=== PATIENT | male | born 1945 | race Caucasian/White ===

== ENCOUNTER 2017-12-22 13:56 | Inpatient (IN) | payer OTHER ==
[~2017-12-22] VITALS: Ht 170.2 cm; Wt 64.6 kg
[~2017-12-22 13:56] MED LIST: ALPR.5; ALPR.5 PO; ASPI325 PO; AZIT250 PO; CYCL10 PO; DILT180; DILT180 PO; ESCI10; FLUSAL1005; GINKGO BILOBA; GLUC500; GLUCHON PO; GUAI600T33 PO; HYDACE5; HYDACE5 PO; IBUP800 PO; IPRAOI; LISI5 PO; META400 PO; META800 PO; MOTRIN; MULVITA; NAPR375 PO; NAPR500; OXYB5; OXYB5 PO; PAIN PILL; PENVK500; RXHYDACE PO; RXMETA400 PO; TOCO1000; TOCO400 PO; TYLENOL; VITA25000 PO; Vitamin C100 MG PO
[2017-12-22] MEDS ORDERED: Vesicare10 MG PO (14:12)
[2017-12-22 15:12] LABS: Alanine Aminotransfer (ALT/SGP 24 U/L (12-78); Albumin, Blood 3.8 g/dL (3.4-5.0); Alk Phos 71 U/L (50-136); Anion Gap 7 mmol/L (6-16); Aspartate Aminotrans (AST/SGOT 25 U/L (12-37); Bilirubin, Total 0.5 mg/dL (0.1-1.0); Blood Urea Nitrogen 15 mg/dL (8-24); Bun/Creatinine Ratio 23.1 (12.0-20.0); CO2, Blood 27 mmol/L (21-32); Calcium, Blood 8.9 mg/dL (8.5-10.1); Chloride, Blood 108 mmol/L (98-108); Creatinine, Blood 0.65 mg/dL (0.60-1.20); Glomerular Filtration Rate >60 (60-); Glucose, Blood 115 mg/dL (70-99); Potassium, Blood 4.6 mmol/L (3.5-5.5); Sodium, Blood 142 mmol/L (136-145); Total Protein, Blood 7.8 g/dL (6.4-8.2)
[2017-12-22 15:30] LABS: BASOPHILS ABSOLUTE AUTO 0.03 K/mm3 (0.00-0.23); BASOPHILS PERCENT AUTO 0 % (0-2); EOSINOPHILS ABSOLUTE AUTO 0.17 K/mm3 (0.00-0.68); EOSINOPHILS PERCENT AUTO 2 % (0-6); IMMATURE GRAN ABSOLUTE AUTO 0.01 K/mm3 (0.00-0.10); IMMATURE GRAN PERCENT AUTO 0 % (0-1); LYMPHOCYTES ABSOLUTE AUTO 1.62 K/mm3 (0.84-5.20); LYMPHOCYTES PERCENT AUTO 23 % (21-46); MONOCYTES ABSOLUTE AUTO 0.54 K/mm3 (0.16-1.47); MONOCYTES PERCENT AUTO 8 % (4-13); Mean Corpuscular HGB 32.8 pg (26.0-34.0); Mean Corpuscular Volume 96 fL (80-100); Mean Platelet Volume 10.2 fL (9.1-12.4); NEUTROPHILS ABSOLUTE AUTO 4.61 K/mm3 (1.96-9.15); NEUTROPHILS PERCENT AUTO 66 % (41-73); Platelet Count 202 K/mm3 (150-400); RDW Coefficient Variation 13.1 % (11.7-14.2); RDW Standard Deviation 46.9 fL (35.1-46.3); Red Blood Cell Count 4.88 M/mm3 (4.30-5.90); White Blood Cell Count 6.98 K/mm3 (4.00-11.30)
[2017-12-22 15:50] LABS: Test Name PT
[2017-12-22 16:57] LABS: C-REACTIVE PROTEIN, EXT RANGE <0.290 mg/dL (0.000-0.300)
[2017-12-23 05:01] LABS: Hematocrit 40.1 % (37.0-53.0); Hemoglobin 13.4 g/dL (13.5-17.5); Mean Corpuscular HGB 32.1 pg (26.0-34.0); Mean Corpuscular HGB Conc 33.4 g/dL (31.5-36.5); Mean Corpuscular Volume 96 fL (80-100); Mean Platelet Volume 10.1 fL (9.1-12.4); Platelet Count 184 K/mm3 (150-400); RDW Coefficient Variation 13.2 % (11.7-14.2); RDW Standard Deviation 46.9 fL (35.1-46.3); Red Blood Cell Count 4.17 M/mm3 (4.30-5.90); White Blood Cell Count 7.33 K/mm3 (4.00-11.30)
[2017-12-23 05:22] LABS: Alanine Aminotransfer (ALT/SGP 18 U/L (12-78); Albumin/Globulin Ratio 0.9 (0.8-1.8); Alk Phos 52 U/L (50-136); Anion Gap 4 mmol/L (6-16); Aspartate Aminotrans (AST/SGOT 8 U/L (12-37); Bilirubin, Total 0.5 mg/dL (0.1-1.0); Blood Urea Nitrogen 17 mg/dL (8-24); Bun/Creatinine Ratio 22.4 (12.0-20.0); CO2, Blood 28 mmol/L (21-32); Calcium, Blood 8.2 mg/dL (8.5-10.1); Chloride, Blood 113 mmol/L (98-108); Creatinine, Blood 0.76 mg/dL (0.60-1.20); Globulin, Blood 3.2 g/dL (2.2-4.0); Glomerular Filtration Rate >60 (60-); Glucose, Blood 127 mg/dL (70-99); Potassium, Blood 3.9 mmol/L (3.5-5.5); Sodium, Blood 145 mmol/L (136-145); Total Protein, Blood 6.2 g/dL (6.4-8.2)
[2017-12-24 04:58] LABS: BASOPHILS ABSOLUTE AUTO 0.03 K/mm3 (0.00-0.23); BASOPHILS PERCENT AUTO 0 % (0-2); EOSINOPHILS ABSOLUTE AUTO 0.17 K/mm3 (0.00-0.68); EOSINOPHILS PERCENT AUTO 2 % (0-6); Hematocrit 40.3 % (37.0-53.0); Hemoglobin 13.5 g/dL (13.5-17.5); IMMATURE GRAN ABSOLUTE AUTO 0.01 K/mm3 (0.00-0.10); IMMATURE GRAN PERCENT AUTO 0 % (0-1); LYMPHOCYTES ABSOLUTE AUTO 1.79 K/mm3 (0.84-5.20); LYMPHOCYTES PERCENT AUTO 24 % (21-46); MONOCYTES ABSOLUTE AUTO 0.61 K/mm3 (0.16-1.47); MONOCYTES PERCENT AUTO 8 % (4-13); Mean Corpuscular HGB 32.5 pg (26.0-34.0); Mean Corpuscular HGB Conc 33.5 g/dL (31.5-36.5); Mean Corpuscular Volume 97 fL (80-100); Mean Platelet Volume 10.8 fL (9.1-12.4); NEUTROPHILS ABSOLUTE AUTO 4.91 K/mm3 (1.96-9.15); NEUTROPHILS PERCENT AUTO 65 % (41-73); Platelet Count 169 K/mm3 (150-400); RDW Standard Deviation 46.7 fL (35.1-46.3); Red Blood Cell Count 4.16 M/mm3 (4.30-5.90); White Blood Cell Count 7.52 K/mm3 (4.00-11.30)
[2017-12-24 05:21] LABS: Anion Gap 6 mmol/L (6-16); Blood Urea Nitrogen 16 mg/dL (8-24); Bun/Creatinine Ratio 20.7 (12.0-20.0); CO2, Blood 27 mmol/L (21-32); Calcium, Blood 8.5 mg/dL (8.5-10.1); Chloride, Blood 110 mmol/L (98-108); Creatinine, Blood 0.77 mg/dL (0.60-1.20); Glomerular Filtration Rate >60 (60-); Glucose, Blood 143 mg/dL (70-99); Potassium, Blood 4.1 mmol/L (3.5-5.5); Sodium, Blood 143 mmol/L (136-145)
== END 2017-12-26 18:35 | disposition home or self-care (01) | DRG 603 ==
LOC: ER 13:56 → MEDS 16:34 → ER 17:43 → MEDS 12-26 18:35
PROVIDERS: Family Medicine; Internal Medicine; Physician Assistant
DX: L03.116 Cellulitis of left lower limb (principal); I10 Essential (primary) hypertension; F17.210 Nicotine dependence, cigarettes, uncomplicated; J30.2 Other seasonal allergic rhinitis; R32 Unspecified urinary incontinence; F41.9 Anxiety disorder, unspecified; R45.1 Restlessness and agitation; I16.0 Hypertensive urgency; R26.9 Unspecified abnormalities of gait and mobility; J44.9 Chronic obstructive pulmonary disease, unspecified; Z79.82 Long term (current) use of aspirin
CPT/HCPCS: 36415; 80048; 80053; 83605; 83880; 85025; 85027; 85610; 86140; 87040; 87077; 93971; 96365; 97161; 97530; 99285; G8978; G8979; G8980; J0360; J0696; J0713; J7030

== ENCOUNTER → 2019-03-19 | Outpatient (CLI) | payer OTHER ==
[~2019-03-19] MED LIST changes: +Vesicare10 MG PO
[2019-03-24 13:07] LABS: M-SPIKE, % Not Observed % (Not Observed); PROTEIN,TOTAL,URINE 11.2 mg/dL (Not Estab.)
== END ==
LOC: LAB 10:00 → LAB SHORT 10:00 → LAB FUT 02-24 10:05
PROVIDERS: Internal Medicine
DX: Z00.01 Encounter for general adult medical examination with abnormal findings (principal)
CPT/HCPCS: 81050; 84166; 86335

== ENCOUNTER 2019-06-21 17:17 | Emergency (ER) | payer OTHER ==
[~2019-06-21] VITALS: Ht 154.9 cm; Wt 57.6 kg
[2019-06-21] MEDS ORDERED: LIDO700A20 TOP (18:45)
[2019-06-21] MEDS ORDERED: IBUP400 PO (18:45)
== END 2019-06-21 19:02 | disposition home or self-care (01) ==
LOC: ER 17:17
DX: S39.012A Strain of muscle, fascia and tendon of lower back, initial encounter (principal); I10 Essential (primary) hypertension; F17.210 Nicotine dependence, cigarettes, uncomplicated; Z88.8 Allergy status to other drugs, medicaments and biological substances; Z79.82 Long term (current) use of aspirin; Z79.899 Other long term (current) drug therapy; V02.90XA Pedestrian on foot injured in collision with two- or three-wheeled motor vehicle, unspecified whether traffic or nontraffic accident, initial encounter
CPT/HCPCS: 72100; 99283

== ENCOUNTER 2019-08-12 19:06 | Emergency (ER) | payer OTHER ==
[~2019-08-12] VITALS: Ht 154.9 cm; Wt 58.1 kg
[~2019-08-12 19:06] MED LIST changes: +IBUP400 PO; +LIDO700A20 TOP
[2019-08-12] MEDS ORDERED: METFORMIN HCL500 M2 PO (19:26)
[2019-08-12] MEDS ORDERED: FUROSEMIDE40 MG PO (19:26)
[2019-08-12] MEDS ORDERED: Toviaz4 MG PO (19:27)
[2019-08-12] MEDS ORDERED: Klor-Con 1010 MEQ PO (19:27)
[2019-08-12 20:37] LABS: Source, Urine Clean Catch
[2019-08-12 20:48] LABS: Bilirubin, Urine Neg (Neg); Blood, Urine Neg (Neg); Glucose Qualitative, Urine Neg (Neg); Ketones, Urine Neg (Neg); Leukocyte Esterase, Urine Neg (Neg); Nitrite, Urine Neg (Neg); Protein, Urine Neg (Neg); Specific Gravity, Urine 1.015 (1.003-1.022); Urobilinogen, Urine 1+ (Normal); pH, Urine 6.5 (5.0-8.0)
[2019-08-12 20:52] LABS: Appearance, Urine Clear (Clear); Color, Urine Yellow (P-Yellow)
[2019-08-12 21:12] LABS: BASOPHILS ABSOLUTE AUTO 0.05 K/mm3 (0.00-0.23); BASOPHILS PERCENT AUTO 1 % (0-2); EOSINOPHILS ABSOLUTE AUTO 0.28 K/mm3 (0.00-0.68); EOSINOPHILS PERCENT AUTO 3 % (0-6); Hematocrit 42.2 % (37.0-53.0); Hemoglobin 13.6 g/dL (13.5-17.5); IMMATURE GRAN ABSOLUTE AUTO 0.02 K/mm3 (0.00-0.10); IMMATURE GRAN PERCENT AUTO 0 % (0-1); LYMPHOCYTES ABSOLUTE AUTO 2.09 K/mm3 (0.84-5.20); LYMPHOCYTES PERCENT AUTO 23 % (21-46); MONOCYTES ABSOLUTE AUTO 0.73 K/mm3 (0.16-1.47); MONOCYTES PERCENT AUTO 8 % (4-13); Mean Corpuscular HGB 31.9 pg (26.0-34.0); Mean Corpuscular HGB Conc 32.2 g/dL (31.5-36.5); Mean Corpuscular Volume 99 fL (80-100); Mean Platelet Volume 10.7 fL (9.1-12.4); NEUTROPHILS ABSOLUTE AUTO 6.02 K/mm3 (1.96-9.15); NEUTROPHILS PERCENT AUTO 66 % (41-73); Platelet Count 266 K/mm3 (150-400); RDW Coefficient Variation 13.2 % (11.7-14.2); RDW Standard Deviation 47.9 fL (35.1-46.3); Red Blood Cell Count 4.27 M/mm3 (4.30-5.90); White Blood Cell Count 9.19 K/mm3 (4.00-11.30)
[2019-08-12 21:32] LABS: Alanine Aminotransfer (ALT/SGP 24 U/L (12-78); Albumin, Blood 3.6 g/dL (3.4-5.0); Albumin/Globulin Ratio 0.9 (0.8-1.8); Alk Phos 74 U/L (50-136); Anion Gap 4 mmol/L (6-16); Aspartate Aminotrans (AST/SGOT 18 U/L (12-37); Bilirubin, Total 0.2 mg/dL (0.1-1.0); Blood Urea Nitrogen 22 mg/dL (8-24); Bun/Creatinine Ratio 25.6 (12.0-20.0); CO2, Blood 30 mmol/L (21-32); Calcium, Blood 8.9 mg/dL (8.5-10.1); Chloride, Blood 109 mmol/L (98-108); Creatinine, Blood 0.86 mg/dL (0.60-1.20); Globulin, Blood 3.9 g/dL (2.2-4.0); Glomerular Filtration Rate >60 (60-); Glucose, Blood 111 mg/dL (70-99); Potassium, Blood 4.5 mmol/L (3.5-5.5); Sodium, Blood 143 mmol/L (136-145); Total Protein, Blood 7.5 g/dL (6.4-8.2)
== END 2019-08-13 00:09 | disposition home or self-care (01) ==
LOC: ER 19:06
PROVIDERS: Emergency Medicine
DX: R42 Dizziness and giddiness (principal); J44.1 Chronic obstructive pulmonary disease with (acute) exacerbation; I10 Essential (primary) hypertension; E11.9 Type 2 diabetes mellitus without complications; F17.210 Nicotine dependence, cigarettes, uncomplicated; Z88.8 Allergy status to other drugs, medicaments and biological substances; Z79.899 Other long term (current) drug therapy; Z79.84 Long term (current) use of oral hypoglycemic drugs; Z79.82 Long term (current) use of aspirin
CPT/HCPCS: 71046; 80053; 81003; 84484; 85025; 93005; 93010; 94640; 99284-25

== ENCOUNTER 2019-10-11 12:48 | Emergency (ER) | payer OTHER ==
[~2019-10-11] VITALS: Ht 154.9 cm; Wt 59.0 kg
[~2019-10-11 12:48] MED LIST changes: -FLUSAL1005; +FLUT1DIS5 INH; +FUROSEMIDE40 MG PO; +Klor-Con 1010 MEQ PO; +METFORMIN HCL500 M2 PO; +Miralax17 GM PO; +Toviaz4 MG PO
[2019-10-11] MEDS ORDERED: ALBU2.5V5 INH (13:27)
== END 2019-10-11 15:25 | disposition home or self-care (01) ==
LOC: ER 12:48
DX: R07.89 Other chest pain (principal); Z65.8 Other specified problems related to psychosocial circumstances; I10 Essential (primary) hypertension; J44.9 Chronic obstructive pulmonary disease, unspecified; E11.9 Type 2 diabetes mellitus without complications; F17.210 Nicotine dependence, cigarettes, uncomplicated; Z88.8 Allergy status to other drugs, medicaments and biological substances; Z79.82 Long term (current) use of aspirin; Z79.899 Other long term (current) drug therapy
CPT/HCPCS: 71045; 84484; 93005; 93010; 99285-25

== ENCOUNTER 2020-04-08 12:03 | Emergency (ER) | payer OTHER ==
[~2020-04-08] VITALS: Ht 162.6 cm; Wt 59.0 kg
[~2020-04-08 12:03] MED LIST changes: +ALBU2.5V5 INH; -ASPI325 PO; +Aspirin EC81 MG PO; +DIPH25 PO; +FLUT1DIS2 INH; -FLUT1DIS5 INH; +IPRAT-ALBUT 0.5-3 ML INH; +MIRALAX17 GM PO
[2020-04-08 12:45] LABS: BASOPHILS ABSOLUTE AUTO 0.05 K/mm3 (0.00-0.23); BASOPHILS PERCENT AUTO 1 % (0-2); EOSINOPHILS ABSOLUTE AUTO 0.23 K/mm3 (0.00-0.68); EOSINOPHILS PERCENT AUTO 3 % (0-6); Hematocrit 42.5 % (37.0-53.0); IMMATURE GRAN ABSOLUTE AUTO 0.02 K/mm3 (0.00-0.10); IMMATURE GRAN PERCENT AUTO 0 % (0-1); LYMPHOCYTES ABSOLUTE AUTO 1.85 K/mm3 (0.84-5.20); LYMPHOCYTES PERCENT AUTO 21 % (21-46); MONOCYTES ABSOLUTE AUTO 0.59 K/mm3 (0.16-1.47); MONOCYTES PERCENT AUTO 7 % (4-13); Mean Corpuscular HGB 31.5 pg (26.0-34.0); Mean Corpuscular HGB Conc 32.9 g/dL (31.5-36.5); Mean Corpuscular Volume 96 fL (80-100); Mean Platelet Volume 9.9 fL (9.1-12.4); NEUTROPHILS ABSOLUTE AUTO 5.98 K/mm3 (1.96-9.15); NEUTROPHILS PERCENT AUTO 69 % (41-73); Platelet Count 282 K/mm3 (150-400); RDW Coefficient Variation 13.1 % (11.7-14.2); RDW Standard Deviation 46.4 fL (35.1-46.3); Red Blood Cell Count 4.45 M/mm3 (4.30-5.90); White Blood Cell Count 8.72 K/mm3 (4.00-11.30)
[2020-04-08 12:57] LABS: Source, Urine Clean Catch
[2020-04-08 12:59] LABS: Alanine Aminotransfer (ALT/SGP 26 U/L (12-78); Albumin, Blood 3.7 g/dL (3.4-5.0); Albumin/Globulin Ratio 0.9 (0.8-1.8); Alk Phos 72 U/L (50-136); Anion Gap 6 mmol/L (6-16); Aspartate Aminotrans (AST/SGOT 19 U/L (12-37); Bilirubin, Total 0.3 mg/dL (0.1-1.0); Blood Urea Nitrogen 22 mg/dL (8-24); Bun/Creatinine Ratio 28.3 (12.0-20.0); CO2, Blood 28 mmol/L (21-32); Calcium, Blood 9.3 mg/dL (8.5-10.1); Chloride, Blood 105 mmol/L (98-108); Creatinine, Blood 0.78 mg/dL (0.60-1.20); Glomerular Filtration Rate >60 (60-); Glucose, Blood 205 mg/dL (70-99); Potassium, Blood 4.4 mmol/L (3.5-5.5); Sodium, Blood 139 mmol/L (136-145); Total Protein, Blood 7.7 g/dL (6.4-8.2); Troponin I <0.015 ng/mL (0.000-0.040)
[2020-04-08 13:01] LABS: Appearance, Urine Clear (Clear); Bilirubin, Urine Neg (Neg); Blood, Urine Neg (Neg); Color, Urine Yellow (P-Yellow); Glucose Qualitative, Urine 1+ (Neg); Ketones, Urine Neg (Neg); Leukocyte Esterase, Urine Neg (Neg); Nitrite, Urine Neg (Neg); Protein, Urine Neg (Neg); Urobilinogen, Urine NORM (Normal)
== END 2020-04-08 14:50 | disposition home or self-care (01) ==
LOC: ER 12:03
PROVIDERS: Physician Assistant
DX: R55 Syncope and collapse (principal); R00.0 Tachycardia, unspecified; I10 Essential (primary) hypertension; F17.210 Nicotine dependence, cigarettes, uncomplicated
CPT/HCPCS: 36415; 71046; 80053; 81003; 84484; 85025; 93005; 93010; 99284-25

== ENCOUNTER 2020-09-10 17:15 | Emergency (ER) | payer OTHER ==
[~2020-09-10] VITALS: Ht 167.6 cm; Wt 70.3 kg
[2020-09-10 18:48] LABS: BASOPHILS ABSOLUTE AUTO 0.05 K/mm3 (0.00-0.23); BASOPHILS PERCENT AUTO 1 % (0-2); EOSINOPHILS ABSOLUTE AUTO 0.47 K/mm3 (0.00-0.68); EOSINOPHILS PERCENT AUTO 5 % (0-6); Hematocrit 45.8 % (37.0-53.0); Hemoglobin 15.1 g/dL (13.5-17.5); IMMATURE GRAN ABSOLUTE AUTO 0.01 K/mm3 (0.00-0.10); IMMATURE GRAN PERCENT AUTO 0 % (0-1); LYMPHOCYTES ABSOLUTE AUTO 2.05 K/mm3 (0.84-5.20); LYMPHOCYTES PERCENT AUTO 21 % (21-46); MONOCYTES ABSOLUTE AUTO 0.56 K/mm3 (0.16-1.47); MONOCYTES PERCENT AUTO 6 % (4-13); Mean Corpuscular HGB 31.1 pg (26.0-34.0); Mean Corpuscular Volume 94 fL (80-100); Mean Platelet Volume 9.3 fL (9.1-12.4); NEUTROPHILS ABSOLUTE AUTO 6.44 K/mm3 (1.96-9.15); NEUTROPHILS PERCENT AUTO 67 % (41-73); Platelet Count 282 K/mm3 (150-400); RDW Coefficient Variation 13.8 % (11.7-14.2); RDW Standard Deviation 48.1 fL (35.1-46.3); Red Blood Cell Count 4.85 M/mm3 (4.30-5.90); White Blood Cell Count 9.58 K/mm3 (4.00-11.30)
[2020-09-10 19:12] LABS: Alanine Aminotransfer (ALT/SGP 30 U/L (12-78); Albumin, Blood 3.9 g/dL (3.4-5.0); Alk Phos 72 U/L (50-136); Anion Gap 4 mmol/L (6-16); Aspartate Aminotrans (AST/SGOT 16 U/L (12-37); Bilirubin, Total 0.2 mg/dL (0.1-1.0); Blood Urea Nitrogen 25 mg/dL (8-24); Bun/Creatinine Ratio 34.9 (12.0-20.0); CO2, Blood 29 mmol/L (21-32); Calcium, Blood 9.6 mg/dL (8.5-10.1); Chloride, Blood 106 mmol/L (98-108); Creatinine, Blood 0.72 mg/dL (0.60-1.20); Globulin, Blood 4.1 g/dL (2.2-4.0); Glomerular Filtration Rate >60 (60-); Glucose, Blood 142 mg/dL (70-99); Potassium, Blood 4.3 mmol/L (3.5-5.5); Sodium, Blood 139 mmol/L (136-145); Troponin I <0.015 ng/mL (0.000-0.040)
== END 2020-09-10 20:06 | disposition home or self-care (01) ==
LOC: ER 17:15
PROVIDERS: Emergency Medicine
DX: R07.89 Other chest pain (principal)
CPT/HCPCS: 36415; 71046; 80053; 83880; 84484; 85025; 93005; 93010; 99284-25

== ENCOUNTER 2020-12-27 10:13 | Emergency (ER) | payer OTHER ==
[~2020-12-27] VITALS: Ht 154.9 cm; Wt 57.6 kg
[2020-12-27 11:07] LABS: Alanine Aminotransfer (ALT/SGP 19 U/L (12-78); Albumin, Blood 3.8 g/dL (3.4-5.0); Albumin/Globulin Ratio 0.9 (0.8-1.8); Alk Phos 68 U/L (50-136); Anion Gap 4 mmol/L (6-16); Aspartate Aminotrans (AST/SGOT 12 U/L (12-37); Bilirubin, Total 0.3 mg/dL (0.1-1.0); Blood Urea Nitrogen 11 mg/dL (8-24); Bun/Creatinine Ratio 16.1 (12.0-20.0); CO2, Blood 30 mmol/L (21-32); Calcium, Blood 9.5 mg/dL (8.5-10.1); Chloride, Blood 104 mmol/L (98-108); Creatinine, Blood 0.69 mg/dL (0.60-1.20); Globulin, Blood 4.1 g/dL (2.2-4.0); Glomerular Filtration Rate >60 (60-); Glucose, Blood 191 mg/dL (70-99); Potassium, Blood 4.3 mmol/L (3.5-5.5); Sodium, Blood 138 mmol/L (136-145); Total Protein, Blood 7.9 g/dL (6.4-8.2); Troponin I <0.015 ng/mL (0.000-0.040)
[2020-12-27 11:38] LABS: BASOPHILS ABSOLUTE AUTO 0.02 K/mm3 (0.00-0.23); BASOPHILS PERCENT AUTO 0 % (0-2); EOSINOPHILS ABSOLUTE AUTO 0.16 K/mm3 (0.00-0.68); EOSINOPHILS PERCENT AUTO 2 % (0-6); Hematocrit 43.2 % (37.0-53.0); Hemoglobin 14.1 g/dL (13.5-17.5); IMMATURE GRAN ABSOLUTE AUTO 0.02 K/mm3 (0.00-0.10); IMMATURE GRAN PERCENT AUTO 0 % (0-1); LYMPHOCYTES ABSOLUTE AUTO 1.37 K/mm3 (0.84-5.20); LYMPHOCYTES PERCENT AUTO 19 % (21-46); MONOCYTES PERCENT AUTO 7 % (4-13); Mean Corpuscular HGB 30.9 pg (26.0-34.0); Mean Corpuscular HGB Conc 32.6 g/dL (31.5-36.5); Mean Corpuscular Volume 95 fL (80-100); Mean Platelet Volume 9.9 fL (9.1-12.4); NEUTROPHILS ABSOLUTE AUTO 5.13 K/mm3 (1.96-9.15); NEUTROPHILS PERCENT AUTO 71 % (41-73); Platelet Count 230 K/mm3 (150-400); RDW Coefficient Variation 14.1 % (11.7-14.2); RDW Standard Deviation 49.2 fL (35.1-46.3); Red Blood Cell Count 4.57 M/mm3 (4.30-5.90)
[2020-12-27 12:35] LABS: Source, Urine Voided
[2020-12-27 12:58] LABS: Bilirubin, Urine Neg (Neg); Blood, Urine Neg (Neg); Glucose Qualitative, Urine Neg (Neg); Ketones, Urine Neg (Neg); Leukocyte Esterase, Urine Neg (Neg); Nitrite, Urine Neg (Neg); Protein, Urine Neg (Neg); Urobilinogen, Urine NORM (Normal)
[2020-12-27 13:02] LABS: Appearance, Urine Clear (Clear); Color, Urine Yellow (P-Yellow)
== END 2020-12-27 15:45 | disposition home or self-care (01) ==
LOC: ER 10:13
PROVIDERS: Emergency Medicine
DX: R55 Syncope and collapse (principal); Z79.82 Long term (current) use of aspirin; Z79.899 Other long term (current) drug therapy
CPT/HCPCS: 36415; 71045; 80053; 81003; 84484; 85025; 93005; 93010; 99284-25; J7030

== ENCOUNTER → 2021-03-19 | Outpatient (CLI) | payer OTHER | END | disposition home or self-care (01) | LOC: LAB SHORT 16:00 | DX: E11.9 Type 2 diabetes mellitus without complications (principal) | CPT/HCPCS: 83036 ==

== ENCOUNTER 2021-04-10 02:36 | Day surgery (SDC) | payer OTHER | END 2021-04-10 22:46 | disposition home or self-care (01) | LOC: WOUND 02:36 | DX: E11.622 Type 2 diabetes mellitus with other skin ulcer (principal); L97.812 Non-pressure chronic ulcer of other part of right lower leg with fat layer exposed; E11.59 Type 2 diabetes mellitus with other circulatory complications; E11.51 Type 2 diabetes mellitus with diabetic peripheral angiopathy without gangrene; I87.2 Venous insufficiency (chronic) (peripheral); F17.210 Nicotine dependence, cigarettes, uncomplicated; J44.9 Chronic obstructive pulmonary disease, unspecified | CPT/HCPCS: A9270; G0463 ==

== ENCOUNTER 2021-04-15 05:53 | Day surgery (SDC) | payer OTHER | END 2021-04-15 23:00 | disposition home or self-care (01) | LOC: WOUND 05:53 | DX: E11.622 Type 2 diabetes mellitus with other skin ulcer (principal); L97.812 Non-pressure chronic ulcer of other part of right lower leg with fat layer exposed; E11.59 Type 2 diabetes mellitus with other circulatory complications; E11.51 Type 2 diabetes mellitus with diabetic peripheral angiopathy without gangrene; I87.2 Venous insufficiency (chronic) (peripheral); F17.210 Nicotine dependence, cigarettes, uncomplicated; J44.9 Chronic obstructive pulmonary disease, unspecified | CPT/HCPCS: G0463 ==

== ENCOUNTER 2021-04-29 18:05 | Inpatient (IN) | payer OTHER ==
[~2021-04-29] VITALS: Ht 154.9 cm; Wt 54.4 kg
[2021-04-29 19:39] LABS: BASOPHILS ABSOLUTE AUTO 0.06 K/mm3 (0.00-0.23); BASOPHILS PERCENT AUTO 0 % (0-2); EOSINOPHILS ABSOLUTE AUTO 0.03 K/mm3 (0.00-0.68); EOSINOPHILS PERCENT AUTO 0 % (0-6); Hematocrit 39.7 % (37.0-53.0); Hemoglobin 13.6 g/dL (13.5-17.5); IMMATURE GRAN ABSOLUTE AUTO 0.09 K/mm3 (0.00-0.10); IMMATURE GRAN PERCENT AUTO 1 % (0-1); LYMPHOCYTES ABSOLUTE AUTO 0.98 K/mm3 (0.84-5.20); LYMPHOCYTES PERCENT AUTO 6 % (21-46); MONOCYTES PERCENT AUTO 4 % (4-13); Mean Corpuscular HGB 31.4 pg (26.0-34.0); Mean Corpuscular HGB Conc 34.3 g/dL (31.5-36.5); Mean Corpuscular Volume 92 fL (80-100); Mean Platelet Volume 11.2 fL (9.1-12.4); NEUTROPHILS PERCENT AUTO 89 % (41-73); Platelet Count 223 K/mm3 (150-400); RDW Coefficient Variation 13.2 % (11.7-14.2); RDW Standard Deviation 45.1 fL (35.1-46.3); Red Blood Cell Count 4.33 M/mm3 (4.30-5.90); White Blood Cell Count 16.76 K/mm3 (4.00-11.30)
[2021-04-29 19:55] LABS: Alanine Aminotransfer (ALT/SGP 15 U/L (12-78); Albumin, Blood 2.7 g/dL (3.4-5.0); Albumin/Globulin Ratio 0.6 (0.8-1.8); Alk Phos 84 U/L (50-136); Anion Gap 5 mmol/L (6-16); Aspartate Aminotrans (AST/SGOT 23 U/L (12-37); Bilirubin, Total 0.5 mg/dL (0.1-1.0); Blood Urea Nitrogen 16 mg/dL (8-24); Bun/Creatinine Ratio 21.2 (12.0-20.0); CO2, Blood 30 mmol/L (21-32); Calcium, Blood 9.1 mg/dL (8.5-10.1); Chloride, Blood 101 mmol/L (98-108); Creatinine, Blood 0.75 mg/dL (0.60-1.20); Globulin, Blood 4.9 g/dL (2.2-4.0); Glomerular Filtration Rate >60 (60-); Glucose, Blood 328 mg/dL (70-99); Potassium, Blood 4.4 mmol/L (3.5-5.5); Sodium, Blood 136 mmol/L (136-145); Total Protein, Blood 7.6 g/dL (6.4-8.2)
[2021-04-29 19:59] LABS: Source, Urine Catheter
[2021-04-29 20:01] LABS: Appearance, Urine Clear (Clear); Bilirubin, Urine Neg (Neg); Blood, Urine 1+ (Neg); Color, Urine Yellow (P-Yellow); Glucose Qualitative, Urine 4+ (Neg); Ketones, Urine 1+ (Neg); Leukocyte Esterase, Urine Neg (Neg); Nitrite, Urine Neg (Neg); Protein, Urine 2+ (Neg); Specific Gravity, Urine 1.015 (1.003-1.022); Urobilinogen, Urine 2+ (Normal); pH, Urine 6.5 (5.0-8.0)
[2021-04-29 20:18] LABS: Bacteria Few /hpf; Red Blood Cells, Urine 0-2 /hpf (0-2); Squamous Epithelial Cells Few /hpf (Few)
[2021-04-29 20:19] LABS: Hyaline Casts 0-2 /lpf (0-2)
[2021-04-29] MEDS ORDERED: ZOLOFT50 MG PO (21:11)
--- NOTE | 2021-04-30 00:53 | NUR ---
PT ARRIVED TO UNIT FROM ER, REPORT PER AFSHIN MATHIS RN.
[2021-04-30 04:44] LABS: BASOPHILS ABSOLUTE AUTO 0.05 K/mm3 (0.00-0.23); BASOPHILS PERCENT AUTO 0 % (0-2); EOSINOPHILS ABSOLUTE AUTO 0.11 K/mm3 (0.00-0.68); EOSINOPHILS PERCENT AUTO 1 % (0-6); IMMATURE GRAN ABSOLUTE AUTO 0.08 K/mm3 (0.00-0.10); IMMATURE GRAN PERCENT AUTO 1 % (0-1); LYMPHOCYTES ABSOLUTE AUTO 1.47 K/mm3 (0.84-5.20); LYMPHOCYTES PERCENT AUTO 10 % (21-46); MONOCYTES ABSOLUTE AUTO 0.85 K/mm3 (0.16-1.47); MONOCYTES PERCENT AUTO 6 % (4-13); Mean Corpuscular HGB 30.8 pg (26.0-34.0); Mean Corpuscular HGB Conc 33.3 g/dL (31.5-36.5); Mean Corpuscular Volume 92 fL (80-100); Mean Platelet Volume 10.8 fL (9.1-12.4); NEUTROPHILS ABSOLUTE AUTO 11.74 K/mm3 (1.96-9.15); NEUTROPHILS PERCENT AUTO 82 % (41-73); Platelet Count 199 K/mm3 (150-400); RDW Coefficient Variation 13.4 % (11.7-14.2); RDW Standard Deviation 45.5 fL (35.1-46.3)
--- NOTE | 2021-04-30 04:54 | NUR ---
SHIFT SUMMARY PT A&O X4 AND IN PLEASENT MOOD T/O SHIFT. PT [place] & HARD TO UNDERSTAND AT TIMES. CALL LIGHT W/IN REACH. BANDAGES ON BILATERAL LE WERE CHANGED DURING THIS SHIFT, CDI @ THIS TIME. PT WAS APPEARED VERY PAINFUL DURING DRESSING CHANGE, BUT DENIES PAIN @ THIS TIME.
[2021-04-30 05:23] LABS: Alanine Aminotransfer (ALT/SGP 12 U/L (12-78); Albumin, Blood 2.2 g/dL (3.4-5.0); Albumin/Globulin Ratio 0.5 (0.8-1.8); Alk Phos 69 U/L (50-136); Anion Gap 6 mmol/L (6-16); Aspartate Aminotrans (AST/SGOT 11 U/L (12-37); Bilirubin, Total 0.5 mg/dL (0.1-1.0); Blood Urea Nitrogen 12 mg/dL (8-24); Bun/Creatinine Ratio 18.6 (12.0-20.0); CO2, Blood 26 mmol/L (21-32); Calcium, Blood 8.6 mg/dL (8.5-10.1); Chloride, Blood 107 mmol/L (98-108); Creatinine, Blood 0.65 mg/dL (0.60-1.20); Globulin, Blood 4.3 g/dL (2.2-4.0); Glomerular Filtration Rate >60 (60-); Glucose, Blood 217 mg/dL (70-99); Potassium, Blood 3.9 mmol/L (3.5-5.5); Sodium, Blood 139 mmol/L (136-145); Total Protein, Blood 6.5 g/dL (6.4-8.2)
--- NOTE | 2021-04-30 15:14 | NUR ---
SHIFT SUMMARY: CELLULITIS BILATERAL FEET PATIENT IS ALERT AND ORIENTED X3 THOUGH HAS A HARD TIME COMING UP WITH WORDS/SPEAKING. PATIENT IS OSAGE AT TIMES. BOTH THE BOTTOMS OF HIS FEET HAVE SCABS/OPEN WOUNDS. SILVERDENE WAS APPLIED TO BOTH FEET AND ARE OPEN TO AIR. PATIENT DENIES PAIN UNTIL TOUCHING THE BOTTOMS OF HIS FEET. PATIENT IS TOLERATING PO INTAKE AND IS VOIDING. HE HAS HAD TWO BMS THIS SHIFT. CALLS APPROPRIATELY. CALL LIGHT WITHIN REACH. THE PLAN IS TO CONTINUE IV ABX AND AWAITING PODITRIST CONSULT TO COME SEE HIM.
[2021-05-01 04:32] LABS: BASOPHILS ABSOLUTE AUTO 0.03 K/mm3 (0.00-0.23); BASOPHILS PERCENT AUTO 0 % (0-2); EOSINOPHILS PERCENT AUTO 2 % (0-6); Hematocrit 34.4 % (37.0-53.0); Hemoglobin 11.5 g/dL (13.5-17.5); IMMATURE GRAN ABSOLUTE AUTO 0.06 K/mm3 (0.00-0.10); IMMATURE GRAN PERCENT AUTO 1 % (0-1); LYMPHOCYTES ABSOLUTE AUTO 1.44 K/mm3 (0.84-5.20); LYMPHOCYTES PERCENT AUTO 14 % (21-46); MONOCYTES ABSOLUTE AUTO 0.65 K/mm3 (0.16-1.47); MONOCYTES PERCENT AUTO 6 % (4-13); Mean Corpuscular HGB 30.8 pg (26.0-34.0); Mean Corpuscular HGB Conc 33.4 g/dL (31.5-36.5); Mean Corpuscular Volume 92 fL (80-100); Mean Platelet Volume 10.3 fL (9.1-12.4); NEUTROPHILS ABSOLUTE AUTO 8.26 K/mm3 (1.96-9.15); NEUTROPHILS PERCENT AUTO 78 % (41-73); Platelet Count 191 K/mm3 (150-400); RDW Coefficient Variation 13.2 % (11.7-14.2); RDW Standard Deviation 45.2 fL (35.1-46.3); Red Blood Cell Count 3.73 M/mm3 (4.30-5.90); White Blood Cell Count 10.64 K/mm3 (4.00-11.30)
[2021-05-01 04:48] LABS: Albumin, Blood 2.1 g/dL (3.4-5.0); Anion Gap 3 mmol/L (6-16); Blood Urea Nitrogen 11 mg/dL (8-24); Bun/Creatinine Ratio 16.5 (12.0-20.0); CO2, Blood 30 mmol/L (21-32); Calcium, Blood 8.8 mg/dL (8.5-10.1); Chloride, Blood 106 mmol/L (98-108); Creatinine, Blood 0.67 mg/dL (0.60-1.20); Glomerular Filtration Rate >60 (60-); Glucose, Blood 200 mg/dL (70-99); Phosphorus, Blood 3.2 mg/dL (2.5-4.9); Sodium, Blood 139 mmol/L (136-145)
--- NOTE | 2021-05-01 06:54 | NUR ---
PT IS A/OX2-3. IS [place]. SPEECH IS DIFFICULT TO UNDERSTAND. NO EVENTS OVER NIGHT. MISSING MOST OF HIS TEETH. [facility]. TELE: SR W/PVC'S. USES URINAL BUT ALSO WEARS DISPOSABLE BRIEFS. LUE POWERGLIDE PATENT. ROOM AIR. WHEEZING NOTED. WOULD CULTURE DONE. SCREAMS WHEN FEET ARE TOUCHED. PLANTAR SURFACE WITH OPEN AREAS, DRY FLAKY SKIN. SILVADENE APPLIED TO PLANTAR SURFACE BILAT FEET. REDNESS EXTENDS UP LLE/CALF.
--- NOTE | 2021-05-01 14:33 | NUR ---
SHIFT SUMMARY: CELLULITIS BILATERAL FEET PATIENT IS ALERT AND ORIENTED X3 THOUGH HAS A HARD TIME THINKING/SPEAKING WORDS AT TIMES. VS ARE WNL AND IS ON RA. PATIENT SCREAMS IN PAIN WITH EVEN A LIGHT TOUCH TO THE BOTTOMS OF HIS FEET. PATIENT DOES REPORT RELIEF WHEN SILERDENE IS APPLIED TO THE AREA. HE HAS OPEN SORES/SCABS/DRY SKIN ON THE BOTTOM OF HIS FEET THAT ARE COVERED WITH SILVERDENE. PATIENT IS ABLE TO WIGGLE TOES AND HAS PALPABLE PULSES. MEPILEX HAS BEEN APPLIED TO HIS BOTTOM A PREVENTATIVE. PATIENT IS TOLERATING PO INTAKE, VOIDING, AND HAD 3 BMS YESTERDAY. CALLS APPROPRIATELY. CALL LIGHT WITHIN REACH. AWAITING FOR DR. VANCE TO COME ASSESS THE PATIENT TO GIVE A MORE DIRECT PLAN FOR THE PATIENT.
--- NOTE | 2021-05-01 17:42 | NUR ---
DR. VANCE CAME BY AND EVALUATED THE PATIENT. PINKY SAYS TO CONTINUE TO COVER BOTH FEET WITH THE SILVERDENE. IF IT STARTS TO BECOME WORSE TO GIVE HIM A CALL. DR. VANCE ALSO ORDERED A CRESCENCIO AND FUNGAL CULTURE WHICH THE SAMPLE WAS COLLECTED AND SENT TO [place]. DR. VANCE ALSO WANTS THE PATIENT TO COME TO HIS OFFICE ONCE HE IS DISCHARGED TO FOLLOW UP WITH HIM. PATIENT IS NOW RESTING COMFORTABLY IN BED. CALL LIGHT WITHIN REACH.
--- NOTE | 2021-05-02 06:30 | NUR ---
PT IS A/OX2-3. ABLE TO MAKE HIS NEEDS NKOWN. DIFFICULT TO UNDERSTAND HIS SPEECH AT TIMES. NO EVENTS OVER NIGHT. ONLY PAIN IS WHEN HIS FEET ARE TOUCHED. PLANTAR SURFACE BOTH FEET ARE RED, DRY, FLAKY, PEELING W/SOME OPEN AREAS. REDNESS EXTENDS FROM LT FOOT TO LT CALF. RED AREA MARKED. SHEET SHOE REPAIRMAN IN PLACE TO KEEP SHEETS/BLANKETS OFF FEET. SILVADENE CR APPLIED TO FEET THEN NANOSCIENCE TECHNICIAN. PODIATRY SAW PT YESTERDAY. MEPILEX TO COCCYX FOR PADDING. TELE: SR W/PVC'S. WEARS ADULT DISPOSABLE BRIEFS BUT ALSO USES URINAL AND BEDPAN. ON BEDREST. ROOM AIR. WHEEZING NOTED. PT IS A SMOKER, REFUSES NICOTINE PATCH/GUM. ALEXE POWERGLIDE PATENT.
--- NOTE | 2021-05-02 17:59 | NUR ---
SHIFT SUMMARY NO ACUTE CHANGES THIS SHIFT. PT ONLY REPORTS PAIN WHEN THE BOTTOM OF HIS FEET ARE TOUCHED. SILVADEEN CREAM APPLIED TO BOTH FEET. WORKED WITH PHYSICAL AND OCCUPATIONAL THERAPY. PT LIVES IN ASSISTED LIVING AND REPORTS THAT HE HAS A LOT OF HELP AT HOME. HE DID WELL IN THERAPY AND WAS ABLE TO SIT UP ON THE SIDE OF THE BED. HE WAS NOT ABLE TO AMBULATE DUE TO HIS FEET. VSS. WILL REPORT TO ONCOMING RN.
--- NOTE | 2021-05-03 06:09 | NUR ---
DENIED PAIN. BILAT FEET MUSIC VIDEO PRODUCER. TOPICAL CREAM APPLIED APPROPRIATELY. CONT CREAM/IV ABX. BC - POST 3 DAYS. PT ON BEDREST. USES URINAL APPROPRIATELY. +OTOE-[place]. +GARBLED SPEECH. TELE: NSR
--- NOTE | 2021-05-03 14:13 | NUR ---
SHIFT SUMMARY: CELLULITIS BILATERAL FOOT INFECTION PATIENT IS ALERT AND ORIENTED X3 THOUGH HAS GARBLED SPEECH AT TIMES. VS ARE WNL AND IS ON RA. PATIENT DENIES PAIN ESPECIALLY WHEN THE SILVERDENE IS APPLIED. PATIENT'S CELLULITIS ON THE LEFT LEG SEEMS TO BE LESS RED THAN IT HAS BEEN. PATINET IS ABLE TO MOVE LEGS AND WIGGLE TOES WHEN ASKED. PEDAL PULSES ARE STRONG. HE IS ABLE TO SIDE TO SIDE IN BED WHEN ASKED. PT CAME AND WORKED WITH HIM EARLIER AND HE SEEMED TO BE DOING WELL. HE IS TOLERATING PO, VOIDING, AND HAD A SMALL BM TODAY. CALLS APPROPRIATELY. CALL LIGHT WITHIN REACH. HE IS CURRENTLY LAYING IN BED WATCHING TV. THE PLAN IS TO CONTINUE TO APPLY SILVERDENE AND IV ABX. DR. VANCE SAID TO CONTACT HIM IF IT GETS WORSE. PATIENT WILL BE FOLLOWING UP WITH DR. VANCE ONCE HE IS DISCHARGED.
--- NOTE | 2021-05-04 06:16 | NUR ---
PT DENIED PAIN THROUGHOUT ENTIRE SHIFT. CREAM APPLIED TO BILAT FEET-SEE EMAR. PT VOIDING USING URINAL. BLOOD GLUCOSE HS 232. NO CHANGES TO POC. WILL PASS ON TO DAY SHIFT TO CONFIRM NEED FOR MINIMAL DEBRIDEMENT OF BILAT SOLES OF FEET. PT USES CALL LIGHT APPROPRIATELY. WILL CONTINUE TO MONITOR THROUGH END OF SHIFT.
--- NOTE | 2021-05-04 13:27 | NUR ---
PT IN ROOM WITH PATIENT AT THIS TIME. PT. IS ALERT, ORIENTED AND COMPLIANT WITH CARES, APPEARS TO BE IN GOOD SPIRITS , TALKATIVE. DENIES PAIN. NOTED LARGE SIZE OLD DRIED SKIN COMING OFF OF FEET WHEN APPLY SILVADENE CREAM, PATIENT DENIES PAIN. APPETITE FAIR, DENIES NAUSEA.
--- NOTE | 2021-05-04 15:29 | NUR ---
Pt resitng in bed, had extensive visit. Review of history and symptoms. Pt is very distraught and anxious fixated on certain issues of stress in his life. Pt lives [place] apartment and has caregiver help coming in. States with covid it has been spotty and not sure what time his caregivers will come or if they will. He is glad to be living independetly. He was living at [facility] and stated it was horrible experince and he was afraid at times for his security and safety. He states he uses his scooter most of the time. He islimited on food but has enough. He states he gets meals on wheels. He sometimes has trouble reaching his food in his fridge. He can only microwave food. states he only eats twice a day. He is eating lots of food here and feels bad. encouraged him to eat food and snacks he need calories to heal his wounds. pt speech is thick and halting very poor dentition. he is anious about his lnadlord and his powerbill an getting evicted if he is late with payment. He bcomes very distraught and almost start to cry. He denies falling but sttes it is rough and he has many near misses. He denies much pain, no headaches or nausea. denies feeling constipated. He does not list next of kin or decison maker. He has a son in the area but he is homeless and living on the streets. States his lease does not allow his son to visit him. His left when the son was a baby and he raised him. He does not have a polst, advance directive or will does not want one want full code treatment. fears getting sicker. States his biggest issue is lack of sleep. offered him a snack and ended vist. He requested coffee and when brought to him wanted me to stay. 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 His affect was bright and when talking about music he smiled a few times when talking about music. Pt high risk for failure to thrive and readmission. Will review pt with PT/OT may suggest assessment for early dementia. Will review with dog daycare provider Pt suggseted maybe rehab for pt instead of home health. Pt may be avoiding interaction with OT but needs their attention. will have chaplian see him for his grief and some music therapy. will follow up with theraputic visits.
--- NOTE | 2021-05-04 17:51 | NUR ---
SHIFT SUMMARY PATIENT ALERT AND ORIENTED. PLEASANT AFFECT AND TALKATIVE TODAY. REMAINS ON BEDREST. LEFT UPPER ARM POWERGLIDE SITE MILDLY PUFFY WITH SOME ARM SWELLING ABOVE SITE. FLUSHES WELL, PT. DENIES PAIN, HOWEVER NO BLOOD RETURN PER BOTH PORTS. ANCEF DOSE AT THIS TIME IS OFF SCHEDULE. PATIENT LAST BM 05/03. APPETITE POOR TODAY AT LUNCH , HOWEVER EATING DINNER. VOIDING WITH NO PROBLEM , URINE CLEAR YELLOW. BILATERAL FEET WITH HEAVY THICK PEELING ON BOTTOM OF FEET. SCATTERED LESIONS AND REDNESS ON LEGS, LLE MARKED WITH PEN. DENIES ANY PAIN OR DISCOMFORT. AWAITING IN ACCESS TEAM TO ASSESS LUE, ATTEMPT FOR IV ON R ARM, NOT SUCESSFUL AT THIS TIME.
--- NOTE | 2021-05-05 06:37 | NUR ---
AAOX3. NO ACUTE DISTRESS NOTED. HAD SOME ITCHING DURING THE NIGHT AND BENADRYL WAS GIVEN FOR THAT. NO VERBALIZED NEEDS AT THIS TIME. CALL LIGHT WITHIN REACH. BE AT THE LOWEST SIDE.
--- NOTE | 2021-05-05 17:19 | NUR ---
SHIFT SUMMARY- on bedrest. Alert and oriented, pleasant affect today. Son in to visit and stayed a couple hours. Appetite good. Feet continue to peel and silvadene applied. Patient denies any pain.
--- NOTE | 2021-05-06 06:30 | NUR ---
AAOX3. NO ACUTE DISTRESS NOTED. ITCHING MEDS WAS GIVEN DURING THE SHIFT. CALL LIGHT WITHIN REACH. BED AT THE LOWEST POSITION. NO OTHER NEEDS VERBALIZED AT THIS TIME
--- NOTE | 2021-05-06 16:17 | NUR ---
PATIENT CURRENTLY SITTING UP IN BED WITH NO SIGNS OR SYMPTOMS ACUTE DISTRESS NOTED. PATIENT WILL BE ASSISTED UP TO CHAIR FOR SUPPER TONIGHT PER ORDERS OF PATIENT ABLE TO GET UP WITH WALKER AND ASSIST. CALL LIGHT AND WATER IN EASY REACH. PATIENT WILL BE DISCHARGING HOME TOMORROW PER DR US. IV ANTIBIOTICS STOPPED, TELEMETRY REMOVED, BEDREST DISCONTINUED. PATIENT HAS NO COMPLAINTS OF PAIN VOICED, NO COMPLAINTS OF NAUSEA. MEDS TAKEN WITH APPLESAUCE. WILL CONTINUE TO MONITOR.
--- NOTE | 2021-05-07 06:33 | NUR ---
PT IS A/OX2-3. IS [place]. HIS SPEECH CAN BE DIFFICULT TO UNDERSTAND. HE DOES GET FRUSTRATED WHEN STAFF CAN NOT UNDERTAND HIM. IS ABLE TO MAKE HIS NEEDS KNOWN. FRANCOIS SIMS, SL AT THIS TIME. SILVADENE CREAM APPLIED TO PLANTAR SURGACE TO BILAT FEET. TOLERATED WELL, DID NOT SCREAM OUT IN PAIN. SOCKS APPLIED AFTER CREAM.
--- NOTE | 2021-05-07 13:47 | NUR ---
DISCHARGE INSTUCTIONS GIVEN TO PATIENT AT THIS TIME. NO SIGNS OR SYMPOTMS ACUTE DISTRESS NOTED. AWAITING WHEEL CHAIR VAN WHICH IS TO ARRIVED AT 1630 TODAY. PATIENT VERBALIZED UNDERSTANDING OF INSTRUCTIONS AT THIS TIME. NO COMPLAINTS OF PAIN. CALL LIGHT AND WATER IN EASY REACH. IV REMOVED.
== END 2021-05-07 16:51 | disposition home health service (06) | DRG 872 ==
LOC: ER 18:05 → SURS 22:55
PROVIDERS: Emergency Medicine; Family Medicine; ADMIT Internal Medicine
DX: A41.9 Sepsis, unspecified organism (principal); L03.116 Cellulitis of left lower limb; L03.115 Cellulitis of right lower limb; L97.429 Non-pressure chronic ulcer of left heel and midfoot with unspecified severity; L97.419 Non-pressure chronic ulcer of right heel and midfoot with unspecified severity; I10 Essential (primary) hypertension; E11.65 Type 2 diabetes mellitus with hyperglycemia; E11.51 Type 2 diabetes mellitus with diabetic peripheral angiopathy without gangrene; E78.5 Hyperlipidemia, unspecified; E11.621 Type 2 diabetes mellitus with foot ulcer; D64.9 Anemia, unspecified; F32.A Depression, unspecified; L30.8 Other specified dermatitis; J44.9 Chronic obstructive pulmonary disease, unspecified; F03.90 Unspecified dementia, unspecified severity, without behavioral disturbance, psychotic disturbance, mood disturbance, and anxiety; F17.210 Nicotine dependence, cigarettes, uncomplicated; Z88.8 Allergy status to other drugs, medicaments and biological substances; Z90.89 Acquired absence of other organs; Z79.82 Long term (current) use of aspirin; Z79.84 Long term (current) use of oral hypoglycemic drugs; Z79.899 Other long term (current) drug therapy; Z90.49 Acquired absence of other specified parts of digestive tract
CPT/HCPCS: 36415; 71045; 80053; 80069; 81001; 82947; 83036; 83605; 85025; 87040; 87070; 87075; 87077; 87147; 87186; 87205; 87210; 93005; 93010; 93971; 96365; 97110; 97116; 97162; 97166; 97530; 97535; 99285-25; A9270; C1751; J0690; J0696; J1650; J3370; J7030; J7120

== ENCOUNTER → 2021-06-21 | Emergency (ER) | payer OTHER ==
[~2021-06-21] VITALS: Ht 157.5 cm; Wt 51.3 kg
[~2021-06-21] MED LIST changes: +K-Dur10 MEQ PO; +Ketoconazole15 GM TOP; -LISI5 PO; +Lisinopril2.5 MG PO; +ZOLOFT50 MG PO
[2021-06-21 19:36] LABS: Source, Urine Voided
[2021-06-21 19:39] LABS: Appearance, Urine Hazy (Clear); BASOPHILS ABSOLUTE AUTO 0.03 K/mm3 (0.00-0.23); BASOPHILS PERCENT AUTO 0 % (0-2); Bilirubin, Urine Neg (Neg); Blood, Urine 2+ (Neg); EOSINOPHILS PERCENT AUTO 0 % (0-6); Glucose Qualitative, Urine 4+ (Neg); Hematocrit 42.1 % (37.0-53.0); Hemoglobin 14.2 g/dL (13.5-17.5); IMMATURE GRAN ABSOLUTE AUTO 0.07 K/mm3 (0.00-0.10); IMMATURE GRAN PERCENT AUTO 1 % (0-1); Ketones, Urine Neg (Neg); LYMPHOCYTES ABSOLUTE AUTO 0.53 K/mm3 (0.84-5.20); LYMPHOCYTES PERCENT AUTO 4 % (21-46); Leukocyte Esterase, Urine Neg (Neg); MONOCYTES ABSOLUTE AUTO 0.67 K/mm3 (0.16-1.47); MONOCYTES PERCENT AUTO 4 % (4-13); Mean Corpuscular HGB 30.9 pg (26.0-34.0); Mean Corpuscular HGB Conc 33.7 g/dL (31.5-36.5); Mean Corpuscular Volume 92 fL (80-100); NEUTROPHILS ABSOLUTE AUTO 13.96 K/mm3 (1.96-9.15); NEUTROPHILS PERCENT AUTO 91 % (41-73); Nitrite, Urine Neg (Neg); Platelet Count 283 K/mm3 (150-400); Protein, Urine Neg (Neg); RDW Coefficient Variation 14.1 % (11.7-14.2); RDW Standard Deviation 47.7 fL (35.1-46.3); Urobilinogen, Urine NORM (Normal); White Blood Cell Count 15.26 K/mm3 (4.00-11.30)
[2021-06-21 19:58] LABS: Color, Urine Yellow (P-Yellow)
[2021-06-21 19:59] LABS: Bacteria Few /hpf; Squamous Epithelial Cells Few /hpf (Few); White Blood Cells, Urine 0-2 /hpf (0-5)
[2021-06-21 20:25] LABS: Influenza A, PCR NEGATIVE (NEGATIVE); Influenza B, PCR NEGATIVE (NEGATIVE); Resp Syncytial Virus, PCR NEGATIVE (NEGATIVE); SARS-Cov-2 (COVID-19) PCR, MMC NEGATIVE (NEGATIVE)
[2021-06-21 20:33] LABS: Alanine Aminotransfer (ALT/SGP 16 U/L (12-78); Albumin, Blood 3.1 g/dL (3.4-5.0); Albumin/Globulin Ratio 0.7 (0.8-1.8); Alk Phos 87 U/L (50-136); Anion Gap 9 mmol/L (6-16); Aspartate Aminotrans (AST/SGOT 13 U/L (12-37); Bilirubin, Total 0.6 mg/dL (0.1-1.0); Blood Urea Nitrogen 16 mg/dL (8-24); Bun/Creatinine Ratio 21.9 (12.0-20.0); CO2, Blood 27 mmol/L (21-32); Calcium, Blood 9.7 mg/dL (8.5-10.1); Chloride, Blood 99 mmol/L (98-108); Creatinine, Blood 0.73 mg/dL (0.60-1.20); Globulin, Blood 4.5 g/dL (2.2-4.0); Glomerular Filtration Rate >60 (60-); Glucose, Blood 620 mg/dL (70-99); Potassium, Blood 4.4 mmol/L (3.5-5.5); Sodium, Blood 135 mmol/L (136-145); Total Protein, Blood 7.6 g/dL (6.4-8.2)
== END ==
LOC: ER 19:04
PROVIDERS: Emergency Medicine
DX: E11.65 Type 2 diabetes mellitus with hyperglycemia (principal); Z88.8 Allergy status to other drugs, medicaments and biological substances; Z79.899 Other long term (current) drug therapy; Z79.82 Long term (current) use of aspirin; Z79.84 Long term (current) use of oral hypoglycemic drugs; I10 Essential (primary) hypertension; F17.210 Nicotine dependence, cigarettes, uncomplicated
CPT/HCPCS: 0241U; 36415; 71045; 80053; 81001; 82947; 83690; 85025; 93005; 93010; 99285-25; A9270; J7030

== ENCOUNTER 2021-06-23 18:07 | Emergency (ER) | payer OTHER ==
[~2021-06-23] VITALS: Ht 154.9 cm; Wt 51.7 kg
[~2021-06-23 18:07] MED LIST changes: -K-Dur10 MEQ PO; -Ketoconazole15 GM TOP; -Lisinopril2.5 MG PO; -METFORMIN HCL500 M2 PO
[2021-06-23 18:30] LABS: BASOPHILS ABSOLUTE AUTO 0.03 K/mm3 (0.00-0.23); BASOPHILS PERCENT AUTO 0 % (0-2); EOSINOPHILS ABSOLUTE AUTO 0.01 K/mm3 (0.00-0.68); EOSINOPHILS PERCENT AUTO 0 % (0-6); Hematocrit 38.2 % (37.0-53.0); IMMATURE GRAN ABSOLUTE AUTO 0.09 K/mm3 (0.00-0.10); IMMATURE GRAN PERCENT AUTO 1 % (0-1); LYMPHOCYTES ABSOLUTE AUTO 0.45 K/mm3 (0.84-5.20); LYMPHOCYTES PERCENT AUTO 3 % (21-46); MONOCYTES ABSOLUTE AUTO 0.79 K/mm3 (0.16-1.47); MONOCYTES PERCENT AUTO 5 % (4-13); Mean Corpuscular HGB 31.1 pg (26.0-34.0); Mean Corpuscular Volume 91 fL (80-100); Mean Platelet Volume 9.8 fL (9.1-12.4); NEUTROPHILS PERCENT AUTO 92 % (41-73); Platelet Count 264 K/mm3 (150-400); Red Blood Cell Count 4.18 M/mm3 (4.30-5.90); White Blood Cell Count 16.97 K/mm3 (4.00-11.30)
[2021-06-23 18:44] LABS: Anion Gap 12 mmol/L (6-16); Blood Urea Nitrogen 17 mg/dL (8-24); Bun/Creatinine Ratio 25.2 (12.0-20.0); CO2, Blood 23 mmol/L (21-32); Calcium, Blood 8.9 mg/dL (8.5-10.1); Chloride, Blood 101 mmol/L (98-108); Creatinine, Blood 0.67 mg/dL (0.60-1.20); Glomerular Filtration Rate >60 (60-); Glucose, Blood 375 mg/dL (70-99); Potassium, Blood 3.9 mmol/L (3.5-5.5); Sodium, Blood 136 mmol/L (136-145)
[2021-06-23 20:57] LABS: Source, Urine Clean Catch
[2021-06-23 21:03] LABS: Appearance, Urine Hazy (Clear); Bilirubin, Urine Neg (Neg); Blood, Urine 5+ (Neg); Color, Urine Yellow (P-Yellow); Glucose Qualitative, Urine 4+ (Neg); Ketones, Urine 2+ (Neg); Leukocyte Esterase, Urine Neg (Neg); Nitrite, Urine Neg (Neg); Protein, Urine 2+ (Neg); Specific Gravity, Urine 1.015 (1.003-1.022); Urobilinogen, Urine NORM (Normal)
[2021-06-23 21:14] LABS: Red Blood Cells, Urine 0-2 /hpf (0-2); White Blood Cells, Urine 0-2 /hpf (0-5)
[2021-06-23 21:15] LABS: Bacteria Rare /hpf; Granular Casts 0-2 /lpf (0); Squamous Epithelial Cells Few /hpf (Few); Transitional Epithelial Cells Few /hpf (0-Rare)
== END 2021-06-23 22:28 | disposition home or self-care (01) ==
LOC: ER 18:07
PROVIDERS: Student in an Organized Health Care Education/Training Program
DX: S40.022A Contusion of left upper arm, initial encounter (principal); D72.829 Elevated white blood cell count, unspecified; R00.0 Tachycardia, unspecified; I10 Essential (primary) hypertension; E11.9 Type 2 diabetes mellitus without complications; Z88.8 Allergy status to other drugs, medicaments and biological substances; Z79.82 Long term (current) use of aspirin; Z79.84 Long term (current) use of oral hypoglycemic drugs; Z79.899 Other long term (current) drug therapy; F17.210 Nicotine dependence, cigarettes, uncomplicated; W18.30XA Fall on same level, unspecified, initial encounter
CPT/HCPCS: 70450; 71045; 73060; 80048; 81001; 83605; 85025; 93005; 93010; 99284-25

== ENCOUNTER 2021-06-24 13:18 | Inpatient (IN) | payer OTHER ==
[~2021-06-24] VITALS: Ht 154.9 cm; Wt 49.2 kg
[2021-06-24 16:32] LABS: Source, Urine Voided
[2021-06-24 16:35] LABS: Appearance, Urine Clear (Clear); Bilirubin, Urine Neg (Neg); Blood, Urine 5+ (Neg); Color, Urine Yellow (P-Yellow); Glucose Qualitative, Urine 3+ (Neg); Ketones, Urine 3+ (Neg); Leukocyte Esterase, Urine 1+ (Neg); Nitrite, Urine Neg (Neg); Protein, Urine 3+ (Neg); Specific Gravity, Urine 1.025 (1.003-1.022); Urobilinogen, Urine 1+ (Normal)
[2021-06-24 16:39] LABS: BASOPHILS ABSOLUTE AUTO 0.05 K/mm3 (0.00-0.23); BASOPHILS PERCENT AUTO 0 % (0-2); EOSINOPHILS ABSOLUTE AUTO 0.02 K/mm3 (0.00-0.68); EOSINOPHILS PERCENT AUTO 0 % (0-6); Hematocrit 36.7 % (37.0-53.0); Hemoglobin 12.4 g/dL (13.5-17.5); IMMATURE GRAN ABSOLUTE AUTO 0.09 K/mm3 (0.00-0.10); IMMATURE GRAN PERCENT AUTO 1 % (0-1); LYMPHOCYTES ABSOLUTE AUTO 1.12 K/mm3 (0.84-5.20); LYMPHOCYTES PERCENT AUTO 6 % (21-46); MONOCYTES ABSOLUTE AUTO 1.02 K/mm3 (0.16-1.47); MONOCYTES PERCENT AUTO 5 % (4-13); Mean Corpuscular HGB 31.1 pg (26.0-34.0); Mean Corpuscular HGB Conc 33.8 g/dL (31.5-36.5); Mean Corpuscular Volume 92 fL (80-100); Mean Platelet Volume 9.9 fL (9.1-12.4); NEUTROPHILS PERCENT AUTO 88 % (41-73); Platelet Count 268 K/mm3 (150-400); RDW Standard Deviation 47.8 fL (35.1-46.3); Red Blood Cell Count 3.99 M/mm3 (4.30-5.90)
[2021-06-24 16:44] LABS: Amorphous Light (0-Heavy); Bacteria Mod /hpf; Mucus Heavy (0-Heavy); Squamous Epithelial Cells Mod /hpf (Few)
[2021-06-24 16:46] LABS: U Amphetamine Screen Not Detected; U Barbituate Screen Not Detected; U Benzodiazapine Screen Not Detected; U Buprenorphine Screen Not Detected; U Cannabinoids Screen Not Detected; U Cocaine Screen Not Detected; U Methadone Screen Not Detected; U Methamphetamine Screen Not Detected; U Opiates Screen Not Detected; U Oxycodone Screen Not Detected; U Phencyclidine Screen Not Detected; U Propoxyphene Screen Not Detected
[2021-06-24 17:14] LABS: Alanine Aminotransfer (ALT/SGP 63 U/L (12-78); Albumin, Blood 2.3 g/dL (3.4-5.0); Albumin/Globulin Ratio 0.5 (0.8-1.8); Alk Phos 70 U/L (50-136); Anion Gap 10 mmol/L (6-16); Aspartate Aminotrans (AST/SGOT 138 U/L (12-37); Bilirubin, Total 0.5 mg/dL (0.1-1.0); Blood Urea Nitrogen 18 mg/dL (8-24); CO2, Blood 25 mmol/L (21-32); Calcium, Blood 8.3 mg/dL (8.5-10.1); Chloride, Blood 103 mmol/L (98-108); Creatinine, Blood 0.56 mg/dL (0.60-1.20); Globulin, Blood 4.3 g/dL (2.2-4.0); Glomerular Filtration Rate >60 (60-); Glucose, Blood 226 mg/dL (70-99); Sodium, Blood 138 mmol/L (136-145); Total Protein, Blood 6.6 g/dL (6.4-8.2); Troponin I <0.015 ng/mL (0.000-0.040)
[2021-06-24 17:15] LABS: Thyroid Stimulating Hormone 0.774 uIU/mL (0.360-4.800)
[2021-06-24 17:41] LABS: Influenza A, PCR NEGATIVE (NEGATIVE); Influenza B, PCR NEGATIVE (NEGATIVE); Resp Syncytial Virus, PCR NEGATIVE (NEGATIVE); SARS-Cov-2 (COVID-19) PCR, MMC NEGATIVE (NEGATIVE)
--- NOTE | 2021-06-24 19:45 | NUR ---
REPORT RECIEVED FROM DELFINA NATHAN RN AND AWAITING PT T/F TO ROOM 339.
--- NOTE | 2021-06-24 21:35 | NUR ---
ALERTED OF GLUTEAL ABCESS OBSERVED DURING ATTENDS CHANGE. STAFF UNAWARE IF MD'S WERE PREVIOUSLY AWARE. PT BEING TREATED FOR UTI BUT HAS HARDENED LUMP NOTED TO R.INNER BUTTOCKS THAT IS RED, HOT AND PAINFUL. REDNESS AND SWELLING EXTENDS INTO R.HIP. THERE APPEARS TO BE A HEALED/FLAKING SCAB IN THE CENTER. GLUTEAL FOLD HAS SBD W/AN ADDTIONAL SMALL OPEN SORE TO L.BUTTOCKS. PHOTOS TAKEN AND CREAM APPLIED. TURN SCHEDULE TO BE MAINTAINED FOR FURTHER SBD PREVENTION. SHE WAS ALSO INFORMED OF VEW SCORE OF 5 FOR PERSISTANT TACHYCARDIA (HR 100), TEMP 101.8 AND TRENDING DOWNWARD BP (NOW 107/68, WAS 130/77). MD INSTRUCTED TO COMMENCE IVF, GIVE RX'D ABX AND ADMINISTER TYLENOL.
--- NOTE | 2021-06-25 00:24 | NUR ---
WAS HERE TO OBSERVE GLUTEAL ABCESS. NEW ORDERS RECIEVED FOR LACTIC ACID, IV VANCOMYCIN, SURGICAL CONSULT AND CT PELVIS W/CONTRAST IN AM. CONSULT CALLED TO ANSWERING SERVICE AT [phone]. WILL COMMENCE IV ABX WHEN ARRIVES.
[2021-06-25 05:31] LABS: BASOPHILS ABSOLUTE AUTO 0.04 K/mm3 (0.00-0.23); BASOPHILS PERCENT AUTO 0 % (0-2); EOSINOPHILS ABSOLUTE AUTO 0.07 K/mm3 (0.00-0.68); EOSINOPHILS PERCENT AUTO 0 % (0-6); Hematocrit 35.9 % (37.0-53.0); Hemoglobin 12.2 g/dL (13.5-17.5); IMMATURE GRAN ABSOLUTE AUTO 0.06 K/mm3 (0.00-0.10); IMMATURE GRAN PERCENT AUTO 0 % (0-1); LYMPHOCYTES ABSOLUTE AUTO 1.19 K/mm3 (0.84-5.20); LYMPHOCYTES PERCENT AUTO 7 % (21-46); MONOCYTES ABSOLUTE AUTO 0.93 K/mm3 (0.16-1.47); MONOCYTES PERCENT AUTO 6 % (4-13); Mean Corpuscular HGB 31.4 pg (26.0-34.0); Mean Corpuscular Volume 92 fL (80-100); Mean Platelet Volume 10.2 fL (9.1-12.4); NEUTROPHILS ABSOLUTE AUTO 13.76 K/mm3 (1.96-9.15); NEUTROPHILS PERCENT AUTO 86 % (41-73); Platelet Count 239 K/mm3 (150-400); RDW Coefficient Variation 14.2 % (11.7-14.2); RDW Standard Deviation 48.2 fL (35.1-46.3); Red Blood Cell Count 3.89 M/mm3 (4.30-5.90); White Blood Cell Count 16.05 K/mm3 (4.00-11.30)
--- NOTE | 2021-06-25 05:50 | NUR ---
PT TAKEN TO CT VIA RRAFAELA.
--- NOTE | 2021-06-25 05:57 | NUR ---
SUMMARY: PT A/OX3-4 BUT CAN BE FORGETFULL AND A POOR HISTORIAN AT TIMES. BED ALARM ON FOR POSSIBLE IMPULSIVITY. HE ADMITS TO INCREASED WEAKNESS W/INABILITY TO STAND AT THIS TIME AND RECENT FALLS AT HOME. SPEECH IS GARBLED AND DIFFICULT TO UNDERSTAND AT TIMES BUT PT IS ABLE TO SPECIFY NEEDS. HE REPORTS PAIN TO BUTTOCKS AND R.HIP W/TYLENOL RECIEVED PRN. HE ALSO HAD TMAX OF 101.8 W/TEMP TRENDING DOWN SINCE RECIEVING TYLENOL. PT USES URINAL IN BED BUT IS OCCASSIONALLY INCONTINENT, ATTENDS CHANGED PRN. GLUTEAL ABCESS OBSERVED AT BEGINNING OF SHIFT DURING LINEN/ATTENDS CHANGE. AREA IS SWOLLEN, HARD, RED AND PAINFUL AND EXTENDS INTO R.HIP. PHOTOS TAKEN AND CAME TO OBSERVE IT W/NEW ORDERS RECIEVED. LACTIC ACID WAS WNL AND WBC'S TRENDING DOWN. ROCEPHIN RECIEVED AND NEW ORDER FOR IV VANCO RX'D AND GIVEN. NS INFUSES AT 100 ML/HR X2 BAGS. CT W/CONTRAST OF R.HIP/PELVIS COMPLETED THIS MORNING AND SURGICAL CX CALLED TO ANSWERING SERVICE. NO ACUTE CHANGES, VSS AND TEMP/HR IMPROVING. WCTM AND REPORT TO DAY RN.
[2021-06-25 06:39] LABS: Alanine Aminotransfer (ALT/SGP 57 U/L (12-78); Albumin, Blood 1.9 g/dL (3.4-5.0); Albumin/Globulin Ratio 0.5 (0.8-1.8); Alk Phos 65 U/L (50-136); Anion Gap 7 mmol/L (6-16); Aspartate Aminotrans (AST/SGOT 91 U/L (12-37); Bilirubin, Total 0.5 mg/dL (0.1-1.0); Blood Urea Nitrogen 15 mg/dL (8-24); Bun/Creatinine Ratio 25.5 (12.0-20.0); CO2, Blood 27 mmol/L (21-32); Calcium, Blood 8.4 mg/dL (8.5-10.1); Chloride, Blood 105 mmol/L (98-108); Creatinine, Blood 0.59 mg/dL (0.60-1.20); Globulin, Blood 3.9 g/dL (2.2-4.0); Glomerular Filtration Rate >60 (60-); Glucose, Blood 198 mg/dL (70-99); Sodium, Blood 139 mmol/L (136-145); Total Protein, Blood 5.8 g/dL (6.4-8.2)
--- NOTE | 2021-06-25 12:31 | NUR ---
CALL PLACED TO DR SULLIVAN ABOUT THIS PATIENT BG AND NPO STATUS. SPOKE TO JAYLON-ANSWERING SERVICE. SHE SAID HE IS PASSING THE MESSAGE ON RIGHT NOW AND WILL HAVE DR NATE GÓMEZ CALL ME BACK. AWAITING FOR CALL
--- NOTE | 2021-06-25 16:00 | NUR ---
CALL PLACED TO [facility] LISTED IN PATIENT RECORD TO UPDATE MED LIST.UNSUCCESSFUL. CALLED THE HOME PHONE NUMBER. NO ANSWER.
--- NOTE | 2021-06-25 19:34 | NUR ---
PATIENT A/O X3. NO ACUTE CHANGES PER SHIFT.NO SIGNS OF DISTRESS. PT COMPLAINTS OF ITCHING IN NORA EXTREMITIES. TREATED PER SEP. PT IS SCHEDULED FOR PROCEDURE TOMORROW. REPORT GIVEN TO SENIOR BUSINESS DEVELOPMENT ANALYST NURSE
[2021-06-26 01:11] LABS: BASOPHILS ABSOLUTE AUTO 0.03 K/mm3 (0.00-0.23); BASOPHILS PERCENT AUTO 0 % (0-2); EOSINOPHILS ABSOLUTE AUTO 0.08 K/mm3 (0.00-0.68); EOSINOPHILS PERCENT AUTO 1 % (0-6); Hematocrit 33.2 % (37.0-53.0); Hemoglobin 11.1 g/dL (13.5-17.5); IMMATURE GRAN ABSOLUTE AUTO 0.05 K/mm3 (0.00-0.10); IMMATURE GRAN PERCENT AUTO 0 % (0-1); LYMPHOCYTES ABSOLUTE AUTO 1.18 K/mm3 (0.84-5.20); LYMPHOCYTES PERCENT AUTO 8 % (21-46); MONOCYTES ABSOLUTE AUTO 0.79 K/mm3 (0.16-1.47); MONOCYTES PERCENT AUTO 5 % (4-13); Mean Corpuscular HGB 30.9 pg (26.0-34.0); Mean Corpuscular HGB Conc 33.4 g/dL (31.5-36.5); Mean Corpuscular Volume 93 fL (80-100); Mean Platelet Volume 9.7 fL (9.1-12.4); NEUTROPHILS ABSOLUTE AUTO 12.78 K/mm3 (1.96-9.15); NEUTROPHILS PERCENT AUTO 86 % (41-73); Platelet Count 250 K/mm3 (150-400); RDW Standard Deviation 47.5 fL (35.1-46.3); Red Blood Cell Count 3.59 M/mm3 (4.30-5.90); White Blood Cell Count 14.91 K/mm3 (4.00-11.30)
[2021-06-26 01:29] LABS: Anion Gap 6 mmol/L (6-16); Blood Urea Nitrogen 16 mg/dL (8-24); Bun/Creatinine Ratio 26.1 (12.0-20.0); CO2, Blood 26 mmol/L (21-32); Calcium, Blood 8.1 mg/dL (8.5-10.1); Chloride, Blood 107 mmol/L (98-108); Creatinine, Blood 0.61 mg/dL (0.60-1.20); Glomerular Filtration Rate >60 (60-); Glucose, Blood 187 mg/dL (70-99); Potassium, Blood 3.8 mmol/L (3.5-5.5); Sodium, Blood 139 mmol/L (136-145); Vancomycin, Trough 8.7 ug/mL (5.0-10.0)
--- NOTE | 2021-06-26 04:46 | NUR ---
SHIFT SUMMARY pT IS CURRENTLY ADMITTED FOR GENERALIZED WEAKNESS AND VISUAL CHANGES. hE IS CURRENTLY BEING TREATED FOR UTI. he is a full code. No acute changes this shift. Pt is scheduled for drainage of abcsess on right buttock this morning.
--- NOTE | 2021-06-26 08:43 | NUR ---
DR REYNOLDS-SURGEON AGREES TO GIVE MED WITH SIP OF WATER
--- NOTE | 2021-06-26 09:54 | NUR ---
AROUND 0930 PATIENT LEFT UNIT FOR PROCEDURE
[2021-06-26] MEDS ORDERED: FUROSEMIDE40 MG PO (15:17)
[2021-06-26] MEDS ORDERED: METFORMIN HCL500 M2 PO (15:18)
[2021-06-26] MEDS ORDERED: Ketoconazole15 GM TOP (15:18)
[2021-06-26] MEDS ORDERED: Lisinopril2.5 MG PO (15:20)
[2021-06-26] MEDS ORDERED: K-Dur10 MEQ PO (15:23)
--- NOTE | 2021-06-26 19:49 | NUR ---
PT A/O X3. HAD PROCEDURE DONE TODAY. NO ACUTE CHANGES. NO PAIN REPORTED REPORT GIVEN TO LAUNCHING PAD MECHANIC NURSE
--- NOTE | 2021-06-27 04:30 | NUR ---
SHIFT SUMMARY 75 YR M ADMITTED ON 06/24/21 FOR GENERALIZED WEAKNESS. FULL CODE. PT HAD A PAINFUL ABSCESS ON HIS RIGHT BUTTOCK DRAINED TODAY AND A DRAIN IS CURRENTLY IN PLACE. HE STATES THAT HE FEELS MUCH BETTER AND THE PAIN HAS REDUCED SIGNIFICANTLY. PT IS CURRENTLY WAITING FOR PLACEMENT IN A SNF.
[2021-06-27 05:48] LABS: BASOPHILS ABSOLUTE AUTO 0.02 K/mm3 (0.00-0.23); BASOPHILS PERCENT AUTO 0 % (0-2); EOSINOPHILS ABSOLUTE AUTO 0.02 K/mm3 (0.00-0.68); EOSINOPHILS PERCENT AUTO 0 % (0-6); Hematocrit 34.6 % (37.0-53.0); Hemoglobin 11.2 g/dL (13.5-17.5); IMMATURE GRAN ABSOLUTE AUTO 0.08 K/mm3 (0.00-0.10); IMMATURE GRAN PERCENT AUTO 1 % (0-1); LYMPHOCYTES ABSOLUTE AUTO 1.43 K/mm3 (0.84-5.20); LYMPHOCYTES PERCENT AUTO 10 % (21-46); MONOCYTES ABSOLUTE AUTO 0.71 K/mm3 (0.16-1.47); MONOCYTES PERCENT AUTO 5 % (4-13); Mean Corpuscular HGB 30.4 pg (26.0-34.0); Mean Corpuscular HGB Conc 32.4 g/dL (31.5-36.5); Mean Corpuscular Volume 94 fL (80-100); Mean Platelet Volume 10.2 fL (9.1-12.4); NEUTROPHILS ABSOLUTE AUTO 12.23 K/mm3 (1.96-9.15); NEUTROPHILS PERCENT AUTO 84 % (41-73); Platelet Count 277 K/mm3 (150-400); RDW Standard Deviation 48.5 fL (35.1-46.3); Red Blood Cell Count 3.69 M/mm3 (4.30-5.90); White Blood Cell Count 14.49 K/mm3 (4.00-11.30)
[2021-06-27 14:03] LABS: Vancomycin, Trough 10.7 ug/mL (5.0-10.0)
--- NOTE | 2021-06-27 18:03 | NUR ---
PT HAS A GOOD SHIFT. DENIES PAIN/DISCOMFORT. PT/OT SESSION WAS SUCCESSFUL TODAY. VERY SMALL AMOUNT OF DRAINAGE AT INCISION SITE. DRESSING CHANGED. PATIENT VITALS STABLE. NO ACUTE CHANGES. NO SIGNS OF DISTRESS. ALL MEDS GIVEN PER EMAR. PT AWAITING FOR PLACEMENT AT [facility] WITH IV ANTIBIOTIC. SECURITY GUARD NURSE WILL CONTINUE TO MONITOR
--- NOTE | 2021-06-28 05:21 | NUR ---
SHIFT SUMMARY PATIENT ALERT AND ORIENTED X3. HAD NO COMPLAINTS OF PAIN OR SHORTNESS OF BREATH. NO ACUTE ISSUES NOTED OVERNIGHT. CALL LIGHT WITHIN REACH. REPORT GIVEN TO ONCOMING RN.
[2021-06-28 05:34] LABS: BASOPHILS ABSOLUTE AUTO 0.04 K/mm3 (0.00-0.23); BASOPHILS PERCENT AUTO 0 % (0-2); EOSINOPHILS ABSOLUTE AUTO 0.15 K/mm3 (0.00-0.68); EOSINOPHILS PERCENT AUTO 2 % (0-6); Hematocrit 34.4 % (37.0-53.0); Hemoglobin 11.1 g/dL (13.5-17.5); IMMATURE GRAN ABSOLUTE AUTO 0.04 K/mm3 (0.00-0.10); IMMATURE GRAN PERCENT AUTO 0 % (0-1); LYMPHOCYTES ABSOLUTE AUTO 1.65 K/mm3 (0.84-5.20); LYMPHOCYTES PERCENT AUTO 17 % (21-46); MONOCYTES ABSOLUTE AUTO 0.57 K/mm3 (0.16-1.47); MONOCYTES PERCENT AUTO 6 % (4-13); Mean Corpuscular HGB 30.4 pg (26.0-34.0); Mean Corpuscular HGB Conc 32.3 g/dL (31.5-36.5); Mean Corpuscular Volume 94 fL (80-100); Mean Platelet Volume 9.8 fL (9.1-12.4); NEUTROPHILS ABSOLUTE AUTO 7.01 K/mm3 (1.96-9.15); NEUTROPHILS PERCENT AUTO 74 % (41-73); Platelet Count 318 K/mm3 (150-400); RDW Coefficient Variation 14.2 % (11.7-14.2); RDW Standard Deviation 48.3 fL (35.1-46.3); Red Blood Cell Count 3.65 M/mm3 (4.30-5.90); White Blood Cell Count 9.46 K/mm3 (4.00-11.30)
[2021-06-28] MEDS ORDERED: ASPI81CH PO (13:56)
[2021-06-28] MEDS ORDERED: DOCU100 PO (13:56)
[2021-06-28] MEDS ORDERED: SENN187 PO (13:57)
[2021-06-28] MEDS ORDERED: SERT50 PO (13:58)
[2021-06-28] MEDS ORDERED: SULTRIDS PO (14:06)
[2021-06-28] MEDS ORDERED: VISBIOME 112.51 EACH PO (14:07)
--- NOTE | 2021-06-28 19:34 | NUR ---
PATIENT A/O X2. VITALS STABLE. NO ACUTE CHANGES. NO REPORTED PAIN/DISCOMFORT. BLOOD SUGAR DROPPED AROUND 1704. TREATED WITH D50, JUICE. 1731 BLOOD SUGAR 212. PATIENT ASYMPTOMATIC. CHARGE NURSE NOTIFIED AND IN THE ROOM WITH PATIENT. PATIENT SITTING UP IN CHAIR , TALKING TO STAFF, EATING DINNER
--- NOTE | 2021-06-28 19:52 | NUR ---
PT A/O X2-3. VITALS STABLE. PATIENT DENIES PAIN/DISCOMFORT. NO ACUTE CHANGES. PATIENT GOT DISCHARGE ORDER TODAY. FRIEND AT BEDSIDE TO PICK HIM UP. DR CLINT Rausch. ASKED TO HOLD ON DISCHARGE UNTIL PROBABLY THURSDAY BECAUSE PT DOES NOT HAVE HOME HEALTH SET UP YET AND THIS PATIENT REQUIRES MORE SUPPORT AT HOME.
[2021-06-29 01:42] LABS: Creatinine, Blood 0.61 mg/dL (0.60-1.20); Vancomycin, Trough 13.5 ug/mL (5.0-10.0)
--- NOTE | 2021-06-29 05:02 | NUR ---
Patient slept well most of the shift. Unfortunately, he insisted on sitting almost straight up in bed with his head cocked to one side on the pillows. The patient would get very agitated with staff when we would try to reposition him, He did manage to take all of his po and iv antibiotics without argument. dressing remained intact, as patient was able to leave it alone with minimal instruction
--- NOTE | 2021-06-29 17:29 | NUR ---
PATIENT VITALS STABLE. NO REPORTED PAIN/DISCOMFORT. NO ACUTE CHANGES. RIGHT BUTTOCK DRESSING CHANGED TODAY. MEDS GIVEN PER EMAR. HAD PT SESSION TODAY/SEE PT NOTES. I SPOKE WITH DR JC ABOUT DISCHARGE AND 02/02 HOME HEALTH/CAREGIVER FOR THIS PATIENT CONSIDERING OVERALL SAFETY. DR JC SAID SHE RECOMMENDS SNIF. POSSIBLE DISCHARGE THURSDAY PER DR JC WHE CASE MANAGEMENT GET EVERYTHING SETUP FOR THIS PATIENT. WILL COMTINUE TO MONITOR
--- NOTE | 2021-06-30 03:14 | NUR ---
DIFFICULTY AGAIN TRYING TO KEEP PATIENT OFF HIS GLUTEAL WOUND ALL NIGHT. HE WANTS TO SIT ALMOST STRAIGHT UP IN THE BED AND LEAN EVER SO SLIGHTLY TO THE LEFT. BILL STILL INSISTING THAT SURGEON WANTED NURSING STAFF TO PULL DRAIN YESTERDAY MORNING. EVEN THOUGH WE HAVE EXPLAINED TO HIM THAT IT IS TO BE PULLED IN SURGEONS OFFICE NEXT WEEK.
--- NOTE | 2021-06-30 17:23 | NUR ---
PATIENT IS ALERT AND ORIENTED WITH INTERMITTENT FORGETFULLNESS. HE USES THE URINAL BUT NEEDS HIS ATTENDS CHANGED PERIODICALLY. HE CAN BECOME ANGRY WITH CARE. HE IS EAGER TO GO HOME. DRESSING ON BUTTOKS CHANGED THIS EVENING. NO NEW CONCERNS THIS SHIFT. WILL CONTINUE TO MONITOR
--- NOTE | 2021-07-01 12:46 | NUR ---
VEDA, THE PATIENT'S FRIEND HAS BEEN CALLED. SHE STATES THAT HER WILL PICK THE PATIENT UP FROM THE HOSPITAL TODAY
[2021-07-01 14:01] LABS: Creatinine, Blood 0.55 mg/dL (0.60-1.20)
--- NOTE | 2021-07-01 16:13 | NUR ---
THE PATIENT'S FRIEND WHO CAME TO PICK HIM UP FOR DISCHARGE SPOKE WITH THE PATIENT ABOUT GOING HOME AND THE SAFETY ISSUES WITH THAT. THE PATIENT AGREED TO STAY AND LOOK FOR PLACEMENT OPTIONS.
--- NOTE | 2021-07-01 17:34 | NUR ---
PATIENT IS ALERT AND ORIENTED AND COOPERATIVE WITH CARE. KYM QUINN. PLAN WAS TO DISCHARGE HOME WITH HOME HEALTH BUT THE PATIENT'S FRIEND EXPRESSED HER CONCERNS TO THE PATIENT, RN AND DR. JARAMILLO ABOUT THE PATIENT LIVING HOME ALONE AND THE PATIENT IS NOW AGREEABLE TO PLACEMENT. CARE MANAGEMENT NOTIFIED. DRESSING CHANGED. WILL CONTINUE TO MONITOR
--- NOTE | 2021-07-02 04:56 | NUR ---
SOFIE BLOOD SUGAR WAS 213 BEFORE HE WAS ADMINISTERED HIS LANTUS. VITALS REMAINED STABLE. WILL CONTINUE TO MONITOR
--- NOTE | 2021-07-02 18:25 | NUR ---
SHIFT SUMMARY PATIENT IS AAOX3. UNAWARE OF THE DATE BUT KNOWS ITS 2020. EASILY REORIENTED TO TIME. PATIENT HAS BEEN VERY IRRATABLE TODAY WHEN SPOKEN TO ABOUT HIS PLAN OF CARE FOR PLACEMENT. HE HAS BEEN YELLING AND SCREAMING AND VERY UPSET MOST OF THE DAY. SPOKE WITH AND HEBREW TEACHER ABOUT NEW PLANS HE WOULD LIKE TO TAKE NOW. ON RA AND SATS ARE NORMAL WITH NO SOB NOTED. NO C/O PAIN, N/V OR DISCOMFORT VOICED. VSS. NAD NOTED. TOOK MEDS BUT COMPLAINED ABOUT THEM WELL. DRESSING CHANGED AND REINFORCED TO RIGHT BUTTOCKS BUT KEEP PULLING IT OFF AND HAS BEEN INSTRUCTED TO LEAVE IT IN PLACE BUT STATES ITS UNCOMFORTABLE. MANI DRAIN IN PLACE TO SITE OF WOUND AND DR INFORMED HIM THAT HE WILL REMOVE ON TOMORROW AM. WILL CONTINUE TO MONITOR IN CARE
--- NOTE | 2021-07-03 04:54 | NUR ---
SHIFT SUMMARY: SOFIE REMAINED STABLE ALL NIGHT. HE WAS ADMINISTERED HIS MEDICATIONS, HE REFUSED HIS DRESSING CHANGE. WAS ADMINISTERED HIS VANCO.
--- NOTE | 2021-07-03 17:45 | NUR ---
SHIFT SUMMARY PATIENT IS LAYING IN BED RESTING. ABOUT TO EAT DINNER AND BLOOD SUGAR COVERED. JUST SEEN BY RESIDENT AND INFORMED ME HE WOULD BE PULLING THE PATIENTS DRAIN FROM BUTTOCK WOUND AND WILL COVER WITH DRESSING. PATIENT IS AAOX3 NOW BUT DOES GET CONFUSED FROM TIME TO TIME AND HAS TO BE REORIENTED. MORE CALM TODAY AND FOLLOWS SOME ORDERS. C/O PAIN AND SORENESS AT IV SITE AND. UPON ASSESSMENT SITE WAS RED AND HARDNESS NOTED AROUND SITE AND WARM TO TOUCH. IV 20 GAUGE WAS REMOVED FROM RIGHT FOREARM AREA. ATTEMPTED TO RESTRAT IV AND HE REFUSED TO BE STUCK AGAIN AND STATED WE WOULD NOT ANYMORE HE ALSO REFUSED LABS WELL. THE MD WAS NOTIFIED. VSS. NAD NOTED. ON ROOM AIR AND SATS ARE WNL. NO C/O ANY OTHER PAIN, N/V, SOB OR DISCOMFORT VOICED. CALL LIGHT WITHIN REACH AND WILL CONTINUE TO MONITOR IN CARE. WITHIN
--- NOTE | 2021-07-04 06:34 | NUR ---
NO CHANGES FOR BILL OVERNIGHT. STILL USING URINAL AND MAKING SMALL FREQUENT VOIDS. TRIED TO TALK TO HIM ABOUT SKILLED FACILITIES, BUT HE SAID "THEY'RE ALL ROTTEN". TOLERATING DIET AND TAKING FLUIDS WELL
--- NOTE | 2021-07-04 17:37 | NUR ---
SHIFT SUMMARY PATIENT IS AAOX2-3. MEMORY GOES IN AND OUT THROUGHOUT THE DAY. CONTINUES TO BE VERY AGGITATED FOR NO CERTAIN REASON AND UNABLE TO GIVE AN EXPLANATION WHEN ASKED. YELLS OUT AND TROWS PHONE. REFUSED CARE TO HIS SACRAL WOUND AND TO SEE, AND OR ANY TREATMENTS TO BE DONE TO HIM. VSS. NAD NOTED. NO C/O SOB, PAIN, N/V, OR DISCOMFORT VOICED ON TODAY. NO IV ACCESS IN PLACE. 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 TRAY WITH BELONGINGS AT BEDSIDE. TOLERATED MEALS FINE TODAY. CALL LIGHT WITHIN REACH. WILL CONTINUE TO MONITOR IN CARE.
--- NOTE | 2021-07-05 05:17 | NUR ---
EMILIO APPEARED TO BE A LOT MORE COMFORTABLE OVERNIGHT, AND WAS EVEN WILLING TO CHANGE HIS POSITION (WITH HELP)IN THE BED. RIGHT HIP DRESSING REMAINED CLEAN DRY AND INTACT OVERNIGHT. PATIENT WAS EVEN MORE COOPERATIVE WITH CARE TOWARDS STAFF.
[2021-07-05 11:33] LABS: Influenza A, PCR NEGATIVE (NEGATIVE); Influenza B, PCR NEGATIVE (NEGATIVE); Resp Syncytial Virus, PCR NEGATIVE (NEGATIVE); SARS-Cov-2 (COVID-19) PCR, MMC NEGATIVE (NEGATIVE)
== END 2021-07-05 13:18 | DRG 854 ==
LOC: ER 13:18 → ERHOLD 13:19 → MEDS 20:35 → ENPENDDIS 07-01 10:35 → MEDS 07-05 13:18
PROVIDERS: Emergency Medicine; Family Medicine; Internal Medicine; Pharmacist; Surgery; ADMIT Internal Medicine
PROC: 0K9N0ZZ Drainage of Right Hip Muscle, Open Approach (ICD-10-PCS; principal; 2021-06-26 10:00)
DX: A41.9 Sepsis, unspecified organism (principal); L02.31 Cutaneous abscess of buttock; I69.354 Hemiplegia and hemiparesis following cerebral infarction affecting left non-dominant side; N39.0 Urinary tract infection, site not specified; J44.9 Chronic obstructive pulmonary disease, unspecified; E86.0 Dehydration; F32.A Depression, unspecified; R29.6 Repeated falls; I69.320 Aphasia following cerebral infarction; E11.51 Type 2 diabetes mellitus with diabetic peripheral angiopathy without gangrene; Z20.822 Contact with and (suspected) exposure to COVID-19; E78.5 Hyperlipidemia, unspecified; Z90.49 Acquired absence of other specified parts of digestive tract; Z98.890 Other specified postprocedural states; Z88.8 Allergy status to other drugs, medicaments and biological substances; Z79.899 Other long term (current) drug therapy; Z79.84 Long term (current) use of oral hypoglycemic drugs; Z79.82 Long term (current) use of aspirin
CPT/HCPCS: 0241U; 36415; 71045; 72193; 73502; 80048; 80053; 80202; 81001; 82565; 82947; 83605; 84443; 84484; 85025; 87040; 87070; 87075; 87077; 87086; 87147; 87186; 87205; 93005; 93010; 94760; 96376; 97110; 97116; 97162; 97166; 97530; 97535; 99285-25; A9270; G0378; J0171; J0696; J1100; J1650; J1815; J2405; J2704; J3010; J3370; J7030; J7050; J7120; Q9967

== ENCOUNTER 2021-10-31 13:02 | Emergency (ER) | payer OTHER ==
[~2021-10-31] VITALS: Ht 172.7 cm; Wt 54.4 kg
[~2021-10-31 13:02] MED LIST changes: +ASPI81CH PO; +DOCU100 PO; +K-Dur10 MEQ PO; +Ketoconazole15 GM TOP; +Lisinopril2.5 MG PO; +METFORMIN HCL500 M2 PO; +SENN187 PO; +SERT50 PO; +SULTRIDS PO; +VISBIOME 112.51 EACH PO
[2021-10-31 13:37] LABS: BASOPHILS ABSOLUTE AUTO 0.04 K/mm3 (0.00-0.23); BASOPHILS PERCENT AUTO 1 % (0-2); EOSINOPHILS ABSOLUTE AUTO 0.31 K/mm3 (0.00-0.68); EOSINOPHILS PERCENT AUTO 4 % (0-6); Hematocrit 40.2 % (37.0-53.0); Hemoglobin 13.3 g/dL (13.5-17.5); IMMATURE GRAN ABSOLUTE AUTO 0.01 K/mm3 (0.00-0.10); IMMATURE GRAN PERCENT AUTO 0 % (0-1); LYMPHOCYTES ABSOLUTE AUTO 2.37 K/mm3 (0.84-5.20); LYMPHOCYTES PERCENT AUTO 28 % (21-46); MONOCYTES ABSOLUTE AUTO 0.63 K/mm3 (0.16-1.47); MONOCYTES PERCENT AUTO 7 % (4-13); Mean Corpuscular HGB 31.1 pg (26.0-34.0); Mean Corpuscular HGB Conc 33.1 g/dL (31.5-36.5); Mean Corpuscular Volume 94 fL (80-100); Mean Platelet Volume 9.8 fL (9.1-12.4); NEUTROPHILS PERCENT AUTO 60 % (41-73); Platelet Count 246 K/mm3 (150-400); RDW Coefficient Variation 13.6 % (11.7-14.2); RDW Standard Deviation 46.4 fL (35.1-46.3); Red Blood Cell Count 4.28 M/mm3 (4.30-5.90); White Blood Cell Count 8.46 K/mm3 (4.00-11.30)
[2021-10-31 13:54] LABS: Alanine Aminotransfer (ALT/SGP 23 U/L (12-78); Albumin, Blood 3.7 g/dL (3.4-5.0); Albumin/Globulin Ratio 0.9 (0.8-1.8); Alk Phos 93 U/L (50-136); Anion Gap 7 mmol/L (6-16); Aspartate Aminotrans (AST/SGOT 17 U/L (12-37); Bilirubin, Total 0.2 mg/dL (0.1-1.0); Blood Urea Nitrogen 17 mg/dL (8-24); Bun/Creatinine Ratio 22.2 (12.0-20.0); CO2, Blood 33 mmol/L (21-32); Calcium, Blood 9.3 mg/dL (8.5-10.1); Chloride, Blood 103 mmol/L (98-108); Creatinine, Blood 0.77 mg/dL (0.60-1.20); Globulin, Blood 4.1 g/dL (2.2-4.0); Glomerular Filtration Rate >60 (60-); Glucose, Blood 241 mg/dL (70-99); Sodium, Blood 143 mmol/L (136-145); Total Protein, Blood 7.8 g/dL (6.4-8.2)
== END 2021-10-31 15:21 | disposition home or self-care (01) ==
LOC: ER 13:02
PROVIDERS: Emergency Medicine
DX: R55 Syncope and collapse (principal); I10 Essential (primary) hypertension; E11.9 Type 2 diabetes mellitus without complications; J44.9 Chronic obstructive pulmonary disease, unspecified; F17.210 Nicotine dependence, cigarettes, uncomplicated
CPT/HCPCS: 36415; 71045; 80053; 84484; 85025; 93005; 93010; 93246; 99284-25

== ENCOUNTER → 2022-06-12 | Emergency (ER) | payer OTHER ==
[~2022-06-12] VITALS: Ht 160 cm; Wt 66.7 kg
[~2022-06-12] MED LIST changes: +ALBU90OI INH; +ATOR40TA PO; +FURO40 PO; +GLIP5 PO; +METO25ER PO; +PRED20 PO
[2022-06-12 17:02] LABS: BASOPHILS ABSOLUTE AUTO 0.03 K/mm3 (0.00-0.23); BASOPHILS PERCENT AUTO 0 % (0-2); EOSINOPHILS ABSOLUTE AUTO 0.03 K/mm3 (0.00-0.68); EOSINOPHILS PERCENT AUTO 0 % (0-6); Hematocrit 39.8 % (37.0-53.0); Hemoglobin 13.1 g/dL (13.5-17.5); IMMATURE GRAN ABSOLUTE AUTO 0.03 K/mm3 (0.00-0.10); IMMATURE GRAN PERCENT AUTO 0 % (0-1); LYMPHOCYTES ABSOLUTE AUTO 0.53 K/mm3 (0.84-5.20); LYMPHOCYTES PERCENT AUTO 5 % (21-46); MONOCYTES ABSOLUTE AUTO 0.36 K/mm3 (0.16-1.47); MONOCYTES PERCENT AUTO 4 % (4-13); Mean Corpuscular HGB 31.3 pg (26.0-34.0); Mean Corpuscular HGB Conc 32.9 g/dL (31.5-36.5); Mean Corpuscular Volume 95 fL (80-100); Mean Platelet Volume 9.9 fL (9.1-12.4); NEUTROPHILS ABSOLUTE AUTO 9.06 K/mm3 (1.96-9.15); NEUTROPHILS PERCENT AUTO 90 % (41-73); Platelet Count 232 K/mm3 (150-400); RDW Coefficient Variation 13.6 % (11.7-14.2); RDW Standard Deviation 47.3 fL (35.1-46.3); Red Blood Cell Count 4.19 M/mm3 (4.30-5.90); White Blood Cell Count 10.04 K/mm3 (4.00-11.30)
[2022-06-12 17:20] LABS: Albumin, Blood 3.9 g/dL (3.4-5.0); Bilirubin, Total 0.3 mg/dL (0.1-1.0); Bun/Creatinine Ratio 31.4 (12.0-20.0); Calcium, Blood 9.6 mg/dL (8.5-10.1); Creatinine, Blood 0.8 mg/dL (0.60-1.20); Potassium, Blood 4.6 mmol/L (3.5-5.5); Total Protein, Blood 7.9 g/dL (6.4-8.2)
[2022-06-12 18:18] LABS: Influenza B, PCR NEGATIVE (NEGATIVE); Resp Syncytial Virus, PCR NEGATIVE (NEGATIVE); SARS-Cov-2 (COVID-19) PCR, MMC NEGATIVE (NEGATIVE)
[2022-06-12 18:20] LABS: Influenza A, PCR POSITIVE (NEGATIVE)
== END ==
LOC: ER 15:59
PROVIDERS: Student in an Organized Health Care Education/Training Program
DX: J10.1 Influenza due to other identified influenza virus with other respiratory manifestations (principal); J44.1 Chronic obstructive pulmonary disease with (acute) exacerbation; I10 Essential (primary) hypertension; E11.9 Type 2 diabetes mellitus without complications; F17.210 Nicotine dependence, cigarettes, uncomplicated; Z20.822 Contact with and (suspected) exposure to COVID-19; Z88.8 Allergy status to other drugs, medicaments and biological substances; Z79.899 Other long term (current) drug therapy; Z79.84 Long term (current) use of oral hypoglycemic drugs; Z79.82 Long term (current) use of aspirin
CPT/HCPCS: 0241U; 36415; 71045; 80053; 83690; 83880; 84484; 85025; 93005; 93010; 94640; 94664; A9270; J2930; J7030

== ENCOUNTER 2022-06-21 11:22 | Emergency (ER) | payer OTHER ==
[~2022-06-21] VITALS: Ht 152.4 cm; Wt 49.9 kg
== END 2022-06-21 13:52 | disposition home or self-care (01) ==
LOC: ER 11:22
DX: J10.1 Influenza due to other identified influenza virus with other respiratory manifestations (principal); I10 Essential (primary) hypertension; E11.9 Type 2 diabetes mellitus without complications; F17.210 Nicotine dependence, cigarettes, uncomplicated; Z88.8 Allergy status to other drugs, medicaments and biological substances; Z79.82 Long term (current) use of aspirin; Z79.52 Long term (current) use of systemic steroids; Z79.899 Other long term (current) drug therapy
CPT/HCPCS: 99283

== ENCOUNTER 2022-09-27 14:12 | Emergency (ER) | payer OTHER ==
[~2022-09-27] VITALS: Ht 154.9 cm; Wt 57.6 kg
[2022-09-27 16:00] LABS: BASOPHILS ABSOLUTE AUTO 0.03 K/mm3 (0.00-0.23); BASOPHILS PERCENT AUTO 0 % (0-2); EOSINOPHILS ABSOLUTE AUTO 0.19 K/mm3 (0.00-0.68); EOSINOPHILS PERCENT AUTO 3 % (0-6); Hematocrit 38.9 % (37.0-53.0); Hemoglobin 12.6 g/dL (13.5-17.5); IMMATURE GRAN ABSOLUTE AUTO 0.01 K/mm3 (0.00-0.10); IMMATURE GRAN PERCENT AUTO 0 % (0-1); LYMPHOCYTES PERCENT AUTO 28 % (21-46); MONOCYTES ABSOLUTE AUTO 0.51 K/mm3 (0.16-1.47); MONOCYTES PERCENT AUTO 7 % (4-13); Mean Corpuscular HGB 30.4 pg (26.0-34.0); Mean Corpuscular HGB Conc 32.4 g/dL (31.5-36.5); Mean Corpuscular Volume 94 fL (80-100); Mean Platelet Volume 9.8 fL (9.1-12.4); NEUTROPHILS ABSOLUTE AUTO 4.44 K/mm3 (1.96-9.15); NEUTROPHILS PERCENT AUTO 62 % (41-73); Platelet Count 283 K/mm3 (150-400); RDW Coefficient Variation 14.1 % (11.7-14.2); RDW Standard Deviation 48.9 fL (35.1-46.3); Red Blood Cell Count 4.14 M/mm3 (4.30-5.90); White Blood Cell Count 7.18 K/mm3 (4.00-11.30)
[2022-09-27 16:20] LABS: Albumin, Blood 3.7 g/dL (3.4-5.0); Albumin/Globulin Ratio 0.9 (0.8-1.8); Bilirubin, Total 0.2 mg/dL (0.1-1.0); Bun/Creatinine Ratio 25.8 (12.0-20.0); Calcium, Blood 9.4 mg/dL (8.5-10.1); Creatinine, Blood 0.7 mg/dL (0.60-1.20); Globulin, Blood 3.9 g/dL (2.2-4.0); Potassium, Blood 4.2 mmol/L (3.5-5.5); Total Protein, Blood 7.6 g/dL (6.4-8.2)
[2022-09-27] MEDS ORDERED: ALBU90OI INH (18:25)
== END 2022-09-27 19:47 | disposition home or self-care (01) ==
LOC: ER 14:12
PROVIDERS: Physician Assistant
DX: R42 Dizziness and giddiness (principal); R53.1 Weakness; R55 Syncope and collapse; J44.9 Chronic obstructive pulmonary disease, unspecified; I10 Essential (primary) hypertension; E11.9 Type 2 diabetes mellitus without complications; F17.210 Nicotine dependence, cigarettes, uncomplicated; Z88.8 Allergy status to other drugs, medicaments and biological substances; Z79.899 Other long term (current) drug therapy; Z79.84 Long term (current) use of oral hypoglycemic drugs; Z79.82 Long term (current) use of aspirin
CPT/HCPCS: 71046; 80053; 83690; 83880; 84484; 85025; 93005; 93010; A9270

== ENCOUNTER 2023-06-26 13:00 | Emergency (ER) | payer OTHER ==
[~2023-06-26] VITALS: Ht 154.9 cm; Wt 59.4 kg
[2023-06-26 15:15] VITALS: BP 124/90
== END 2023-06-26 15:34 | disposition home or self-care (01) ==
LOC: ER 13:00
DX: R09.89 Other specified symptoms and signs involving the circulatory and respiratory systems (principal); I10 Essential (primary) hypertension; E11.9 Type 2 diabetes mellitus without complications; F17.210 Nicotine dependence, cigarettes, uncomplicated; Z79.84 Long term (current) use of oral hypoglycemic drugs; Z79.52 Long term (current) use of systemic steroids; Z79.899 Other long term (current) drug therapy; Z88.8 Allergy status to other drugs, medicaments and biological substances
CPT/HCPCS: 99284

== ENCOUNTER 2024-06-14 20:09 | Emergency (ER) | payer OTHER ==
[~2024-06-14] VITALS: Ht 182.9 cm; Wt 77.1 kg
[~2024-06-14 20:09] MED LIST changes: +ACET325 PO; +DULCOLAX400 MG/5 M PO; +DULO30 PO; +SENNA LAXATIVE8.6 MG PO
[2024-06-14] MEDS ORDERED: NS 1,000 ML IV SCH (20:45)
[2024-06-14 21:06] LABS: BASOPHILS ABSOLUTE AUTO 0.07 K/mm3 (0.00-0.23); BASOPHILS PERCENT AUTO 0 % (0-2); EOSINOPHILS PERCENT AUTO 2 % (0-6); IMMATURE GRAN ABSOLUTE AUTO 0.08 K/mm3 (0.00-0.10); IMMATURE GRAN PERCENT AUTO 1 % (0-1); LYMPHOCYTES ABSOLUTE AUTO 2.24 K/mm3 (0.84-5.20); LYMPHOCYTES PERCENT AUTO 13 % (21-46); MONOCYTES PERCENT AUTO 6 % (4-13); Mean Corpuscular HGB 30.7 pg (26.0-34.0); Mean Corpuscular HGB Conc 32.5 g/dL (31.5-36.5); Mean Corpuscular Volume 95 fL (80-100); Mean Platelet Volume 9.6 fL (9.1-12.4); NEUTROPHILS ABSOLUTE AUTO 13.15 K/mm3 (1.96-9.15); NEUTROPHILS PERCENT AUTO 78 % (41-73); Platelet Count 263 K/mm3 (150-400); RDW Coefficient Variation 14.6 % (11.7-14.2); RDW Standard Deviation 50.6 fL (35.1-46.3); Red Blood Cell Count 4.23 M/mm3 (4.30-5.90); White Blood Cell Count 16.84 K/mm3 (4.00-11.30)
[2024-06-14 21:24] LABS: Albumin, Blood 3.5 g/dL (3.4-5.0); Albumin/Globulin Ratio 0.8 (0.8-1.8); Bilirubin, Total 0.3 mg/dL (0.1-1.0); Bun/Creatinine Ratio 23.5 (12.0-20.0); Calcium, Blood 9.3 mg/dL (8.5-10.1); Creatinine, Blood 0.77 mg/dL (0.60-1.20); Globulin, Blood 4.3 g/dL (2.2-4.0); Potassium, Blood 4.5 mmol/L (3.5-5.5); Total Protein, Blood 7.8 g/dL (6.4-8.2)
[2024-06-14 21:39] LABS: Source, Urine Clean Catch
[2024-06-14 21:46] LABS: Bilirubin, Urine Neg (Neg); Blood, Urine Neg (Neg); Glucose Qualitative, Urine 3+ (Neg); Ketones, Urine Neg (Neg); Leukocyte Esterase, Urine Neg (Neg); Nitrite, Urine Neg (Neg); Protein, Urine Neg (Neg); Urobilinogen, Urine NORM (Normal)
[2024-06-14 21:57] LABS: Appearance, Urine Clear (Clear); Color, Urine Yellow (P-Yellow)
[2024-06-14 22:59] VITALS: BP 120/73
== END 2024-06-14 23:00 | disposition home or self-care (01) ==
LOC: ER 20:09
PROVIDERS: Emergency Medicine
DX: S80.02XA Contusion of left knee, initial encounter (principal); W18.39XA Other fall on same level, initial encounter; I10 Essential (primary) hypertension; E11.9 Type 2 diabetes mellitus without complications; F17.210 Nicotine dependence, cigarettes, uncomplicated; Z88.8 Allergy status to other drugs, medicaments and biological substances; Z79.82 Long term (current) use of aspirin
CPT/HCPCS: 73562-LT; 80053; 81003; 84484; 85025; 93005; 93010; 96360; 99284-25; J7030

== ENCOUNTER 2024-07-01 20:09 | Emergency (ER) | payer OTHER ==
[~2024-07-01] VITALS: Ht 157.5 cm; Wt 63.5 kg
[2024-07-01] MEDS ORDERED: Dextrose 50% 50 ML Vial ONE (20:10)
[2024-07-01] MEDS ORDERED: Dextrose 50% 50 ML Syringe IV ONE (20:25)
[2024-07-01 20:52] LABS: BASOPHILS ABSOLUTE AUTO 0.03 K/mm3 (0.00-0.23); BASOPHILS PERCENT AUTO 0 % (0-2); EOSINOPHILS ABSOLUTE AUTO 0.23 K/mm3 (0.00-0.68); EOSINOPHILS PERCENT AUTO 3 % (0-6); Hematocrit 35.8 % (37.0-53.0); Hemoglobin 12.1 g/dL (13.5-17.5); IMMATURE GRAN ABSOLUTE AUTO 0.04 K/mm3 (0.00-0.10); IMMATURE GRAN PERCENT AUTO 1 % (0-1); LYMPHOCYTES ABSOLUTE AUTO 2.05 K/mm3 (0.84-5.20); LYMPHOCYTES PERCENT AUTO 24 % (21-46); MONOCYTES ABSOLUTE AUTO 0.66 K/mm3 (0.16-1.47); MONOCYTES PERCENT AUTO 8 % (4-13); Mean Corpuscular HGB 31.1 pg (26.0-34.0); Mean Corpuscular HGB Conc 33.8 g/dL (31.5-36.5); Mean Corpuscular Volume 92 fL (80-100); Mean Platelet Volume 9.7 fL (9.1-12.4); NEUTROPHILS ABSOLUTE AUTO 5.45 K/mm3 (1.96-9.15); NEUTROPHILS PERCENT AUTO 64 % (41-73); Platelet Count 290 K/mm3 (150-400); RDW Coefficient Variation 14.6 % (11.7-14.2); RDW Standard Deviation 48.6 fL (35.1-46.3); Red Blood Cell Count 3.89 M/mm3 (4.30-5.90); White Blood Cell Count 8.46 K/mm3 (4.00-11.30)
[2024-07-01 21:13] LABS: Albumin, Blood 3.3 g/dL (3.4-5.0); Albumin/Globulin Ratio 0.8 (0.8-1.8); Bilirubin, Total 0.3 mg/dL (0.1-1.0); Bun/Creatinine Ratio 20.2 (12.0-20.0); Calcium, Blood 9.6 mg/dL (8.5-10.1); Creatinine, Blood 0.84 mg/dL (0.60-1.20); Globulin, Blood 4.1 g/dL (2.2-4.0); Potassium, Blood 4.2 mmol/L (3.5-5.5); Total Protein, Blood 7.4 g/dL (6.4-8.2)
[2024-07-02 04:00] VITALS: BP 138/79
== END 2024-07-02 04:10 | disposition home or self-care (01) ==
LOC: ER 20:09
PROVIDERS: Student in an Organized Health Care Education/Training Program
DX: E11.649 Type 2 diabetes mellitus with hypoglycemia without coma (principal); I10 Essential (primary) hypertension; F17.210 Nicotine dependence, cigarettes, uncomplicated; Z79.52 Long term (current) use of systemic steroids; Z79.84 Long term (current) use of oral hypoglycemic drugs; Z79.899 Other long term (current) drug therapy; Z88.8 Allergy status to other drugs, medicaments and biological substances
CPT/HCPCS: 80053; 82947; 84484; 85025; 93005; 93010; 96374; 99285-25; J7799

== ENCOUNTER 2025-04-17 13:16 | Emergency (ER) | payer OTHER ==
[~2025-04-17] VITALS: Ht 167.6 cm; Wt 63.5 kg
[2025-04-17] MEDS ORDERED: Albuterol 2.5 MG/3 ML VIAL INH SCH (13:40)
[2025-04-17 13:49] LABS: BASOPHILS ABSOLUTE AUTO 0.05 K/mm3 (0.00-0.23); BASOPHILS PERCENT AUTO 1 % (0-2); EOSINOPHILS ABSOLUTE AUTO 0.21 K/mm3 (0.00-0.68); EOSINOPHILS PERCENT AUTO 3 % (0-6); Hematocrit 38.7 % (37.0-53.0); Hemoglobin 13.0 g/dL (13.5-17.5); IMMATURE GRAN ABSOLUTE AUTO 0.02 K/mm3 (0.00-0.10); IMMATURE GRAN PERCENT AUTO 0 % (0-1); LYMPHOCYTES ABSOLUTE AUTO 2.01 K/mm3 (0.84-5.20); LYMPHOCYTES PERCENT AUTO 24 % (21-46); MONOCYTES ABSOLUTE AUTO 0.59 K/mm3 (0.16-1.47); MONOCYTES PERCENT AUTO 7 % (4-13); Mean Corpuscular HGB Conc 33.6 g/dL (31.5-36.5); Mean Corpuscular Volume 94 fL (80-100); NEUTROPHILS ABSOLUTE AUTO 5.50 K/mm3 (1.96-9.15); NEUTROPHILS PERCENT AUTO 66 % (41-73); NRBC ABSOLUTE 0.00 K/mm3 (0.00-0.02); NRBC Auto 0.0 /100 WBC (0.0-0.2); Platelet Count 238 K/mm3 (150-400); RDW Coefficient Variation 14.4 % (11.7-14.2); RDW Standard Deviation 49.9 fL (35.1-46.3)
[2025-04-17 14:17] LABS: Alanine Aminotransfer (ALT/SGP 27.0 U/L (12-78); Albumin, Blood 3.8 g/dL (3.4-5.0); Albumin/Globulin Ratio 1.0 (0.8-1.8); Anion Gap 8.0 mmol/L (3-11); Aspartate Aminotrans (AST/SGOT 20.0 U/L (12-37); Bilirubin, Total 0.3 mg/dL (0.1-1.0); Blood Urea Nitrogen 20.0 mg/dL (8-24); CO2, Blood 29.0 mmol/L (21-32); Calcium, Blood 9.8 mg/dL (8.5-10.1); Chloride, Blood 106.0 mmol/L (98-108); Creatinine, Blood 0.84 mg/dL (0.60-1.20); Globulin, Blood 4.0 g/dL (2.2-4.0); Glucose, Blood 113.0 mg/dL (70-99); Potassium, Blood 4.5 mmol/L (3.5-5.5); Sodium, Blood 138.0 mmol/L (136-145); Total Protein, Blood 7.8 g/dL (6.4-8.2)
[2025-04-17 14:27] VITALS: BP 147/73
== END 2025-04-17 15:21 | disposition home or self-care (01) ==
LOC: ER 13:16
PROVIDERS: Emergency Medicine
DX: R07.9 Chest pain, unspecified (principal); R06.2 Wheezing; F17.210 Nicotine dependence, cigarettes, uncomplicated; I10 Essential (primary) hypertension; E11.9 Type 2 diabetes mellitus without complications
CPT/HCPCS: 71045; 80053; 84484; 85025

== ENCOUNTER 2025-07-11 11:19 | Emergency (ER) | payer OTHER ==
[~2025-07-11] VITALS: Ht 154.9 cm; Wt 58.5 kg
[2025-07-11] MEDS ORDERED: ALBU90OI INH (11:37)
[2025-07-11] MEDS ORDERED: ALBU2.5V5 INH (11:38)
[2025-07-11] MEDS ORDERED: Bentyl10 MG PO (11:38)
[2025-07-11] MEDS ORDERED: Flurbiprofen100 MG (11:39)
[2025-07-11] MEDS ORDERED: LOPE2C PO (11:40)
[2025-07-11] MEDS ORDERED: TOLTERODINE TART4 MG PO (11:41)
[2025-07-11 12:12] LABS: BASOPHILS ABSOLUTE AUTO 0.04 K/mm3 (0.00-0.23); BASOPHILS PERCENT AUTO 1 % (0-2); EOSINOPHILS ABSOLUTE AUTO 0.25 K/mm3 (0.00-0.68); EOSINOPHILS PERCENT AUTO 3 % (0-6); Hematocrit 40.0 % (37.0-53.0); Hemoglobin 13.0 g/dL (13.5-17.5); IMMATURE GRAN ABSOLUTE AUTO 0.02 K/mm3 (0.00-0.10); IMMATURE GRAN PERCENT AUTO 0 % (0-1); LYMPHOCYTES ABSOLUTE AUTO 1.76 K/mm3 (0.84-5.20); LYMPHOCYTES PERCENT AUTO 24 % (21-46); MONOCYTES ABSOLUTE AUTO 0.48 K/mm3 (0.16-1.47); MONOCYTES PERCENT AUTO 6 % (4-13); Mean Corpuscular HGB Conc 32.5 g/dL (31.5-36.5); Mean Corpuscular Volume 97 fL (80-100); NEUTROPHILS ABSOLUTE AUTO 4.95 K/mm3 (1.96-9.15); NEUTROPHILS PERCENT AUTO 66 % (41-73); NRBC ABSOLUTE 0.00 K/mm3 (0.00-0.02); NRBC Auto 0.0 /100 WBC (0.0-0.2); Platelet Count 267 K/mm3 (150-400); RDW Coefficient Variation 14.9 % (11.7-14.2); RDW Standard Deviation 53.6 fL (35.1-46.3)
[2025-07-11 12:38] LABS: Alanine Aminotransfer (ALT/SGP 22.0 U/L (12-78); Albumin, Blood 3.8 g/dL (3.4-5.0); Albumin/Globulin Ratio 1.0 (0.8-1.8); Anion Gap 9.0 mmol/L (3-11); Aspartate Aminotrans (AST/SGOT 17.0 U/L (12-37); Bilirubin, Total 0.4 mg/dL (0.1-1.0); Blood Urea Nitrogen 19.0 mg/dL (8-24); CO2, Blood 28.0 mmol/L (21-32); Calcium, Blood 9.6 mg/dL (8.5-10.1); Chloride, Blood 105.0 mmol/L (98-108); Creatinine, Blood 0.85 mg/dL (0.60-1.20); Globulin, Blood 3.9 g/dL (2.2-4.0); Glucose, Blood 126.0 mg/dL (70-99); Potassium, Blood 4.3 mmol/L (3.5-5.5); Sodium, Blood 138.0 mmol/L (136-145); Total Protein, Blood 7.7 g/dL (6.4-8.2)
[2025-07-11 13:56] VITALS: BP 133/80
== END 2025-07-11 14:23 | disposition home or self-care (01) ==
LOC: ER 11:19
PROVIDERS: Emergency Medicine
DX: R07.2 Precordial pain (principal); I10 Essential (primary) hypertension; E11.9 Type 2 diabetes mellitus without complications; F17.210 Nicotine dependence, cigarettes, uncomplicated; Z79.82 Long term (current) use of aspirin; Z79.52 Long term (current) use of systemic steroids; Z79.899 Other long term (current) drug therapy; Z88.8 Allergy status to other drugs, medicaments and biological substances
CPT/HCPCS: 71045; 80053; 84484; 85025; 93005; 93010; 99285-25